=== PATIENT | female | born 1990 | race Caucasian/White ===

== ENCOUNTER 2022-11-23 10:56 | Outpatient (CLI) | payer MEDICAID, SELFPAY ==
--- NOTE | 2022-11-23 11:00 | CRLHL7_ITS ---
For Patients: As a result of the Cures Act, medical imaging exams and procedure reports are released immediately into your electronic medical record. You may view this report before your referring provider. If you have questions, please contact your health care provider. INDICATION: First trimester scan, establish dates. COMPARISON: None. TECHNIQUE: Real-time mota-scale imaging of the pelvis was performed. FINDINGS: Sonographic imaging demonstrates a single living intrauterine gestation. The embryo demonstrates a regular cardiac rate measuring 120 beats per minute. The embryo`s crown-rump length measurement of 0.9 cm corresponds to a gestational age of 6 weeks 6 days with a sonographic due date of 07/13/2023. There is a normal-appearing yolk sac. There are no gross abnormalities noted within the embryo at this early state of development. The gestational sac has a normal appearance. There is a tiny perigestational hemorrhage measuring 6 x 4 x 3 millimeters. The amount of fluid within the sac appears appropriate for gestational age. The cervix is closed. The myometrium appears normal. The ovaries are of normal size. There are no suspicious fluid collections noted in the cul-de-sac. IMPRESSION: Single living intrauterine with sonographic gestational age 6 weeks 6 days and sonographic due date 07/13/2023. Dictated by Dio Brown MD @ 11/23/2022 12:12:53 PM (Electronically Signed)
== END 2022-11-23 10:57 | disposition home or self-care (01) ==
PROVIDERS: Visit Provider Advanced Practice Midwife
DX: Z34.91 Encounter for supervision of normal pregnancy, unspecified, first trimester (principal); Z3A.01 Less than 8 weeks gestation of pregnancy
CPT/HCPCS: 76817; T1013

== ENCOUNTER 2022-11-23 12:18 | Outpatient (CLI) | payer MEDICAID, SELFPAY ==
[2022-11-23 17:29] LABS: Chlamydia DNA Amplified* NOT DETECTED (No Detected); GC DNA Amplified* NOT DETECTED (No Detected)
== END 2022-11-23 12:19 | disposition home or self-care (01) ==
PROVIDERS: Visit Provider Advanced Practice Midwife
DX: Z34.91 Encounter for supervision of normal pregnancy, unspecified, first trimester (principal); Z3A.09 9 weeks gestation of pregnancy
CPT/HCPCS: 86592; 86703; 86704; 86706; 86762; 86787; 86803; 86850; 86900; 86901; 87086; 87340; 87491; 87591

== ENCOUNTER 2022-12-13 10:02 | Emergency (ER) | payer MEDICAID, SELFPAY ==
[2022-12-13 10:06] VITALS: BP 103/63; PULSE 85; RESP 18; TEMP 36.4; O2SAT 98; BMI 39.4
[2022-12-13 10:25] LABS: Appearance Urine Slightly Cloudy (Clear); Bilirubin Urine 1+ (Negative); Blood Urine Trace-intact (Negative); Color Urine Yellow (Yellow); Glucose Urine Negative (Negative); Ketones Urine 4+ (Negative); Leukocyte Esterase Urine Negative (Negative); Nitrite Urine Negative (Negative); Protein Urine 2+ (Negative); Specific Gravity Urine >= 1.030 (1.000-1.030); Urobilinogen Urine 0.2 (0.2-1.0)
[2022-12-13 10:49] LABS: Bacteria Urine Moderate; RBC Urine 0-2 (0-2); Squamous Epithelial Cell Urine Moderate (None-Few)
[2022-12-13 10:50] LABS: Mucus Urine Many
--- NOTE | 2022-12-13 10:52 | ED_ITS ---
HPI - General Adult General Chief complaint: Abdominal Pain Stated complaint: lower stomach pain, 9 weeks Time Seen by Provider: 12/13/22 10:03 History of Present Illness HPI narrative: approx 9 weeks preg. c/o lower abd pain since last night. no bleeding or discharge, denies urinary symptoms 32-year-old woman presenting to the emergency department with complaint of lower abdominal/pelvic area cramping beginning last night. She has not had any vaginal bleeding or any other discharge. She denies dysuria. Denies back pain. Notes herself to be 9 weeks . Did have confirmatory ultrasound around 6 weeks by my review of records. Also I would think then she is probably closer to 12 weeks by that dating. She notes though that the dates were not which she expected with LMP; that seemed smaller than she would estimate. She has not any fever. She has struggled with nausea and vomiting during this and has taken some Zofran and did take something for constipation last week; sounds like might have been Colace and she says she has good in that regard now. Says she is just worried and wants to know that everything is okay when I discuss workup and potential treatment for pain or nausea. She would like an ultrasound. she denies complications with pregnancies or deliveries. Related Data Home Medications Medication Instructions Recorded Confirmed vits no.126-ferrous fum tab PO QDAY 12/07/22 12/07/22 28 mg iron-folic acid 800 mcg tablet (Classic ) Previous Rx's Medication Instructions Recorded ondansetron HCl 4 mg tablet 4 mg PO Q8-12H PRN nausea and 12/05/22 vomiting #20 tabs Allergies Allergy/AdvReac Type Severity Reaction Status Date / Time No Known Drug Allergies Allergy Verified 12/07/22 12:52 Review of Systems Status of ROS: Reports: 6 or more systems reviewed and unremarkable except as noted in History and below [facility] Medical History Hx of abnormal cervical Pap smear ?Z87.42 - Personal history of other diseases of the female genital tract (ICD-10) History of depression ?Z86.59 - Personal history of other mental and behavioral disorders (ICD-10) Syncope and collapse ?R55 - Syncope and collapse (ICD-10) History of vaginal delivery History of chorioamnionitis (2012) ?Z87.59 - Personal history of other complications of , childbirth and the puerperium (ICD-10) Surgical History No significant past surgical history Social History Narrative: SOCIAL Education: 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 - partner Lives with: partner and 2 children Pets: none Abuse: Denies past/present Special Diet: Denies Ok with a blood transfusion: yes Culture or latter-day beliefs: denies RISK FACTORS Exercise Times/wk: walks a lot at work Depression/Anxiety: denies DAVID: 4 PHQ 9: 8 Seat Belt Use: Routinely Smoking: Denies past/present Alcohol/day: Denies while Caffeine: not Drug Use: Denies past/present Chicken Pox: immunization MRSA: Denies What is your current living situation?: I presently have a place to live Problems where you live: no known problems In the past 12 months, utilities in danger of being shut off: no In past 12 months, lack of transportation kept you from medical appts, meetings, work, or getting things needed for daily living: no In the past 12 mos, have been you worried that your food would run out before you had money to buy more?: never true In the past 12 mos, the food you bought just didn't last and you didn't have money to buy more?: never true Smoking Status: Never smoker Do you use any of these nicotine containing products: None How often do you have a drink containing alcohol: never How often do you have six or more drinks on one occasion: Never AUDIT-C Alcohol total score: 0 Non-prescribed substance use: denies use How often does anyone, including family, friends and others, physically hurt you : never How often does anyone, including family, friends and others, insult or talk down to you: never How often does anyone, including family, friends and others, threaten you with harm: never How often does anyone, including family, friends and others, scream or curse at you: never Little interest or pleasure in doing things: more than half the days Feeling down, depressed, or hopeless: not at all service: No Exam Narrative: Exam Narrative: Very pleasant. Seems uncomfortable. Regularly rubbing her low abdomen pelvis, pressing. Is breathing easily. Lungs are clear. Heart in regular rate and rhythm. Abdomen is soft overweight and tender across the suprapubic adnexal bilaterally. Extremities are well perfused and without edema. No flank tenderness. Const: Vital Signs, click to edit/add: Vital Signs - 24 hr 12/13/22 10:06 Temperature 97.6 F Pulse Rate [Right Pulse Oximeter] 85 Respiratory Rate 18 Blood Pressure [Ri ght Upper Arm] 103/63 Pulse Oximetry 98 Oxygen Delivery Me thod Room Air Documenting provider has reviewed patient's vital signs: yes Course Vital Signs Vital signs: Initial Vital Signs Temperature 97.6 F 12/13/22 10:06 Temperature Source Temporal Artery Scan 12/13/22 10:06 Pulse Rate 85 12/13/22 10:06 Respiratory Rate 18 12/13/22 10:06 Blood Pressure 103/63 12/13/22 10:06 Blood Pressure Mean 76 12/13/22 10:06 Blood Pressure Position Sitting 12/13/22 10:06 Pulse Oximetry 98 12/13/22 10:06 Oxygen Delivery Method Room Air 12/13/22 10:06 Vital Signs Temperature 97.6 F 12/13/22 10:06 Pulse Rate 85 12/13/22 10:06 Respiratory Rate 18 12/13/22 10:06 Blood Pressure 103/63 12/13/22 10:06 Pulse Oximetry 98 12/13/22 10:06 Oxygen Delivery Method Room Air 12/13/22 10:06 Temperature 97.6 F 12/13/22 10:06 Pulse Rate 85 12/13/22 10:06 Respiratory Rate 18 12/13/22 10:06 Blood Pressure 103/63 12/13/22 10:06 Pulse Oximetry 98 12/13/22 10:06 Oxygen Delivery Method Room Air 12/13/22 10:06 Medical Decision Making MDM Narrative Medical decision making narrative: Seems to be a discrepancy between what date she thinks she is and likely dates by early ultrasound which would suggest her to be closer to 12 weeks. She has not had any bleeding cramping is certainly concerning. Urinalysis is already been resulted entering the room; concentrated in with ketones though otherwise unremarkable. Other concerns though unlikely include appendicitis, unlikely biliary disease being the source today, ovarian cyst would also be unlikely. Pending miscarriage? I did not offer IV hydration antiemetic pain management and she again would prefer just to know that things are okay otherwise. She feels she can manage fluids just has trouble eating food. Later does request acetaminophen after discussion of options. Urinalysis with 4+ ketones. Otherwise no indication of infection. Did discuss ultrasound findings with chief radiologic technologist. Noted normal. Adnexal viewed. IMPRESSION: Normal first trimester OB ultrasound exam. Gestational age calculated at 9 weeks 5 days with a sonographic due date of 07/13/2023. I did offer further evaluation doing lab work, IV fluids, potential imaging is and not certain what is contributing to this cramping. Understandably Jenifer prefers to just go home to close follow-up. See patient discharge plan Lab Data Lab results reviewed: Yes I reviewed the patient's lab results Labs: Lab Results 12/13/22 Range/Units 10:11 Urine Color Yellow (Yellow) Urine Appearance Slightly Cloudy A (Clear) Urine pH 6.0 (5.0-8.5) Ur Specific [place] >= 1.030 (1.000-1.030) Urine Protein 2+ A (Negative) Urine Glucose (UA) Negative (Negative) Urine Ketones 4+ A (Negative) Urine Blood Trace-intact A (Negative) Urine Nitrite Negative (Negative) Urine Bilirubin 1+ A (Negative) Urine Urobilinogen 0.2 (0.2-1.0) Ur Leukocyte Esterase Negative (Negative) Urine RBC 0-2 (0-2) Urine WBC 2-5 (0-5) Ur Squamous Epith Cells Moderate A (None-Few) Urine Bacteria Moderate A (None) Urine Mucus Many A (None) Discharge Plan Discharge Clinical Impression: Abdominal cramping affecting Patient Disposition: Home w/ Parent or Adult Condition: Stable Additional Instructions: Rest. Hydrate. Can take acetaminophen up to 1000 mg per dose. Return for persistent increasing pain, intractable vomiting, associated fever, bleeding. Things look okay at least with your on ultrasound today. Gestational age calculated at 9 weeks 5 days with a sonographic due date of 07/13/2023. Reposo. Hidrato. Puede bandar paracetamol hasta 1000 mg por dosis. Regresa por dolor persistente y creciente, v?mitos intratables, fiebre asociada, sangrado. Las cosas se sudha julito, al menos con segal embarazo en la ecograf?a hoy. Edad gestacional calculada a las 9 semanas y 5 d?as con fecha de parto ecogr?fico del 13/07/2023. Prescriptions: No Action Classic 28 mg iron- 800 mcg tablet PO QDAY Patient Comments: Gummy vitamin ondansetron HCl 4 mg tablet 4 mg PO Q8-12H PRN (Reason: nausea and vomiting) Qty: 20 0RF Follow Up/Referrals: Provider,Not a Local [Primary Care Provider] - Stand Alone Forms: [facility] Info Instructions
--- NOTE | 2022-12-13 11:23 | CRLHL7_ITS ---
For Patients: As a result of the Century Cures Act, medical imaging exams and procedure reports are released immediately into your electronic medical record. You may view this report before your referring provider. If you have questions, please contact your health care provider. INDICATION: lower abd pain in first trimester COMPARISON: 11/23/2022 TECHNIQUE: Real-time mota-scale imaging of the pelvis was performed. FINDINGS: Sonographic imaging demonstrates a single living intrauterine gestation. The embryo demonstrates a regular cardiac rate measuring 161 beats per minute. The embryo`s crown-rump length measurement of 2.9 cm corresponds to a gestational age of 9 weeks 5 days with a sonographic due date of 07/13/2023. There is a normal-appearing yolk sac. There are no gross abnormalities noted within the embryo at this early state of development. The gestational sac has a normal appearance. There is no evidence of a perigestational hemorrhage. The amount of fluid within the sac appears appropriate for gestational age. The cervix is closed. The myometrium appears normal. The ovaries are of normal size. There are no suspicious fluid collections noted in the cul-de-sac. IMPRESSION: Normal first trimester OB ultrasound exam. Gestational age calculated at 9 weeks 5 days with a sonographic due date of 07/13/2023. Dictated by Dio Brown MD @ 12/13/2022 12:11:40 PM (Electronically Signed)
[2022-12-13] MEDS: ACETAMINOPHEN 500 MG TABLET 1000 MG PO (12:18)
== END 2022-12-13 12:24 | disposition home or self-care (01) ==
PROVIDERS: Emergency Provider Family Medicine
DX: R10.30 Lower abdominal pain, unspecified (principal); Z3A.09 9 weeks gestation of pregnancy
CPT/HCPCS: 76817; 81001; 87086; 99283; 99284; A9270

== ENCOUNTER 2022-12-26 17:00 | Emergency (ER) | payer MEDICAID, SELFPAY ==
[2022-12-26 17:22] VITALS: BP 114/75; PULSE 85; RESP 14; TEMP 36.4; O2SAT 98; BMI 37.2
--- NOTE | 2022-12-26 18:32 | ED_ITS ---
HPI - Nausea/Vomiting/Diarrhea General Chief complaint: Nausea/Vomiting Stated complaint: , vomiting Time Seen by Provider: 12/26/22 18:06 History of Present Illness HPI Narrative: This 32-year-old female is about 12 weeks and comes in here upon recommendation of her clinician stating that she should get IV fluids. She has hyperemesis gravidarum and has been taking Zofran without any benefit. She was prescribed Reglan today but has not filled this prescription. She states that she has lost about 8 lb since vomiting more frequently. Related Data Home Medications Medication Instructions Recorded Confirmed vits no.126-ferrous fum tab PO QDAY 12/07/22 12/26/22 28 mg iron-folic acid 800 mcg tablet (Classic ) Previous Rx's Medication Instructions Recorded docusate sodium 100 mg capsule 100 mg PO QDAY constipation #120 12/26/22 (Dulcolax Stool Softener caps (docusate)) famotidine 20 mg tablet (Pepcid) 20 mg PO BID PRN nausea #120 tabs 12/26/22 meclizine 25 mg tablet (Dramamine 25 mg PO Q6-8H PRN nausea and 12/26/22 (meclizine)) vomiting #120 tabs metoclopramide HCl 5 mg tablet 10 mg (2 x 5 mg) PO Q6H PRN nausea 12/26/22 (Reglan) and vomiting #120 tabs Allergies Allergy/AdvReac Type Severity Reaction Status Date / Time No Known Drug Allergies Allergy Verified 12/26/22 17:24 Review of Systems Status of ROS: Reports: 10 or more systems reviewed and unremarkable except as noted in History and below Narrative: Constitutional: No fevers. Weight loss due to vomiting. Eyes: No discharge. No vision changes. HENT: No congestion, no sore throat, no ear pain. Cardiovascular: No chest pain, no palpitations. Respiratory: No shortness of breath, no wheezes, no cough. Gastrointestinal: No abdominal pain, no diarrhea. Frequent vomiting. Genitourinary: No dysuria, no hematuria. Musculoskeletal: Normal range of motion. Skin: No rashes, no pruritis. Neurological: No dizziness, weakness, sensory change, speech change. Endo/Heme/Allergies: No bruising or bleeding. No polydipsia. Pysch: no suicidality, no anxiety, no insomnia. All other systems reviewed and are negative. 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 Lives with: partner and 2 children Pets: none Abuse: Denies past/present Special Diet: Denies Ok with a blood transfusion: yes Culture or religion beliefs: denies RISK FACTORS Exercise Times/wk: walks a lot at work Depression/Anxiety: denies DAVID: 4 PHQ 9: 8 Seat Belt Use: Routinely Smoking: Denies past/present Alcohol/day: Denies while Caffeine: not Drug Use: Denies past/present Chicken Pox: immunization MRSA: Denies What is your current living situation?: I presently have a place to live Problems where you live: no known problems In the past 12 months, utilities in danger of being shut off: no In past 12 months, lack of transportation kept you from medical appts, meetings, work, or getting things needed for daily living: no In the past 12 mos, have been you worried that your food would run out before you had money to buy more?: never true In the past 12 mos, the food you bought just didn't last and you didn't have money to buy more?: never true Smoking Status: Never smoker Do you use any of these nicotine containing products: None How often do you have a drink containing alcohol: never How often do you have six or more drinks on one occasion: Never AUDIT-C Alcohol total score: 0 Non-prescribed substance use: denies use How often does anyone, including family, friends and others, physically hurt you : never How often does anyone, including family, friends and others, insult or talk down to you: never How often does anyone, including family, friends and others, threaten you with harm: never How often does anyone, including family, friends and others, scream or curse at you: never Little interest or pleasure in doing things: more than half the days Feeling down, depressed, or hopeless: not at all service: No Exam Narrative: Exam Narrative: Constitutional: Well-developed, well-nourished, no acute distress. HEENT: Normocephalic, atraumatic. Moist mucous membranes. Neck: Normal range of motion. Nontender. Supple. Heart: Regular. No murmurs. Normal rate. Intact distal pulses. Lungs: Clear to auscultation. No chest discomfort. No wheezes, rhonchi, or rales. Abdomen: Normal bowel sounds. Nontender. No rebound tenderness. Genitalia: Deferred. Back: No midline tenderness. Normal range of motion. Extremities: Normal range of motion. No injury. Skin: Intact. No rash. Warm. No erythema or pallor. Neurologic: No altered sensation. No weakness. Alert and oriented. Psychiatric: No suicidality. No anxiety or depression. No insomnia. Nursing notes and vitals signs are reviewed. Const: Vital Signs, click to edit/add: Vital Signs - 24 hr 12/26/22 17:22 Temperature 97.6 F Pulse Rate [Pulse Oximeter] 85 Respiratory Rate 14 Blood Pressure [Ri ght Upper Arm] 114/75 Pulse Oximetry 98 Oxygen Delivery Me thod Room Air Course Vital Signs Vital signs: Initial Vital Signs Temperature 97.6 F 12/26/22 17:22 Temperature Source Temporal Artery Scan 12/26/22 17:22 Pulse Rate 85 12/26/22 17:22 Respiratory Rate 14 12/26/22 17:22 Blood Pressure 114/75 12/26/22 17:22 Blood Pressure Mean 88 12/26/22 17:22 Blood Pressure Position Sitting 12/26/22 17:22 Pulse Oximetry 98 12/26/22 17:22 Oxygen Delivery Method Room Air 12/26/22 17:22 Vital Signs Temperature 97.6 F 12/26/22 17:22 Pulse Rate 85 12/26/22 17:22 Respiratory Rate 14 12/26/22 17:22 Blood Pressure 114/75 12/26/22 17:22 Pulse Oximetry 98 12/26/22 17:22 Oxygen Delivery Method Room Air 12/26/22 17:22 Temperature 97.6 F 12/26/22 17:22 Pulse Rate 85 12/26/22 17:22 Respiratory Rate 14 12/26/22 17:22 Blood Pressure 114/75 12/26/22 17:22 Pulse Oximetry 98 12/26/22 17:22 Oxygen Delivery Method Room Air 12/26/22 17:22 Medications Administered Medications: Generic Name Dose Route Start Last Admin Trade Name Freq PRN Reason Stop Dose Admin Sodium Chloride 1,000 mls @ 1,000 mls/hr 12/26/22 18:30 12/26/22 20:16 0.9 % Sodium Chloride 1000 Ml IV 12/26/22 19:29 Infused .Q1H MATTHEW Infusion Metoclopramide HCl 10 mg 12/26/22 18:30 12/26/22 19:02 Metoclopramide Hcl 5 Mg/Ml Inj IV 12/26/22 18:31 10 mg ONCE ONE Administration MDM - Nausea/Vomiting/Diarrhea MDM Narrative Medical decision making narrative: This patient comes in with weight loss due to hyperemesis gravidarum. She was sent here for IV fluids. She did receive a L of normal saline intravenously. Prior to this administration she did have moist mucous membranes and does have normal vital signs. She also received Reglan 10 mg in the intravenous route and states that her nausea is absent currently. She does have prescription for Reglan and Zofran. She is okay to return home. I encouraged her to take small sips and small bites of food as tolerated. She can follow up with her ongoing primary physicians as needed. Discharge Plan Discharge Clinical Impression: Hyperemesis gravidarum Patient Disposition: Home, Self-Care Condition: Improved Additional Instructions: Take medication as needed and indicated. Take small sips of fluids and small bites of food as tolerated. Return if worsening. Prescriptions: No Action meclizine [Dramamine (meclizine)] 25 mg tablet 25 mg PO Q6-8H PRN (Reason: nausea and vomiting) Qty: 120 1RF metoclopramide HCl [Reglan] 5 mg tablet 10 mg PO Q6H PRN (Reason: nausea and vomiting) Qty: 120 1RF docusate sodium [Dulcolax Stool Softener (dss)] 100 mg capsule 100 mg PO QDAY Qty: 120 0RF Rx Instructions: Take 1 tablet daily. You can take 2 tablets daily if needed for constipation. famotidine [Pepcid] 20 mg tablet 20 mg PO BID PRN (Reason: nausea) Qty: 120 0RF Rx Instructions: Take one tablet before bed. You can take an additional tablet during the day PRN. Classic 28 mg iron- 800 mcg tablet PO QDAY Patient Comments: Gummy vitamin Follow Up/Referrals: Provider,Not a Local [Primary Care Provider] - Stand Alone Forms: [employer] Info Instructions
[2022-12-26] MEDS: METOCLOPRAMIDE HCL 5 MG/ML INJ 10 MG IV (19:02)
[2022-12-26] MEDS: 0.9 % SODIUM CHLORIDE 1000 ml 1,000 ML IV (19:02)
== END 2022-12-26 20:25 | disposition home or self-care (01) ==
PROVIDERS: Emergency Provider Emergency Medicine Emergency Medical Services
DX: O21.0 Mild hyperemesis gravidarum (principal)
CPT/HCPCS: 96374; 99283; 99284; J2765; J7030

== ENCOUNTER 2023-01-13 11:30 | Outpatient (RCR) | payer MEDICAID, SELFPAY ==
[2022-12-28 11:21] VITALS: BP 98/58; PULSE 79; RESP 16; TEMP 36.4; O2SAT 99
[2022-12-28] MEDS: LACTATED RINGERS 1000 ML 1,000 ML IV (11:40)
[2022-12-28 12:43] LABS: Appearance Urine Cloudy (Clear); Bilirubin Urine Negative (Negative); Blood Urine Negative (Negative); Color Urine Yellow (Yellow); Glucose Urine Negative (Negative); Ketones Urine 2+ (Negative); Leukocyte Esterase Urine Negative (Negative); Nitrite Urine Negative (Negative); Protein Urine 1+ (Negative); Specific Gravity Urine 1.025 (1.000-1.030); pH Urine 7.5 (5.0-8.5)
[2022-12-28 13:00] LABS: Albumin* 3.6 g/dL (3.3-5.0); Chloride* 105 mmol/L (96-114); Sodium* 135 mmol/L (135-149)
[2022-12-28 13:01] LABS: Potassium* 3.3 mmol/L (3.6-5.1)
[2022-12-28 13:03] LABS: Alanine Aminotransferase* 23 U/L (4-35); Alkaline Phosphatase* 53 U/L (40-150); Anion Gap 7 mEq/L (7-15); Aspartate Amino Transferase* 17 U/L (12-35); Bilirubin Total* 0.3 mg/dL (0.1-1.5); Blood Urea Nitrogen* 5 mg/dL (5-24); Carbon Dioxide* 23 mmol/L (20-32); Creatinine* 0.4 mg/dL (0.5-1.5); Estimated Glomerular Filt Rate 136 ml/min; Glucose* 92 mg/dL (60-115); Total Protein* 6.3 g/dL (6.0-8.3)
[2022-12-28 13:04] LABS: Calcium* 8.8 mg/dL (8.4-10.6)
[2022-12-28 13:07] LABS: RBC Urine 0-2 (0-2); Squamous Epithelial Cell Urine Moderate (None-Few)
[2022-12-28 13:08] LABS: Bacteria Urine Few; Mucus Urine Moderate
--- NOTE | 2022-12-28 13:13 | ONC.NURNOTE ---
Pt reported nausea and had an episode of emesis post IV start. Women's health was notified and new orders were placed for pt. Pt refused IV Zofran since symptoms have resolved. Pt is resting comfortably with IV LR with B1 infusing.
[2022-12-30 11:21] LABS: Beta-Hydroxybutyric Acid 2.9 mg/dL (0.0-3.0)
[2023-01-03 09:05] VITALS: BP 92/57; PULSE 80; RESP 16; TEMP 36.3; O2SAT 98
[2023-01-03] MEDS: LACTATED RINGERS 1000 ML 1,000 ML IV (10:11)
[2023-01-03 11:58] LABS: Appearance Urine Clear (Clear); Bilirubin Urine Negative (Negative); Blood Urine Negative (Negative); Color Urine Yellow (Yellow); Glucose Urine Negative (Negative); Ketones Urine 2+ (Negative); Leukocyte Esterase Urine Negative (Negative); Nitrite Urine Negative (Negative); Protein Urine Negative (Negative); Specific Gravity Urine 1.015 (1.000-1.030); Urobilinogen Urine 0.2 (0.2-1.0)
[2023-01-03 12:03] LABS: Albumin* 3.5 g/dL (3.3-5.0); Chloride* 106 mmol/L (96-114); Potassium* 3.4 mmol/L (3.6-5.1); Sodium* 135 mmol/L (135-149)
[2023-01-03 12:05] LABS: Anion Gap 7 mEq/L (7-15); Bilirubin Total* 0.2 mg/dL (0.1-1.5); Carbon Dioxide* 22 mmol/L (20-32); Creatinine* 0.4 mg/dL (0.5-1.5); Estimated Glomerular Filt Rate 136 ml/min
[2023-01-03 12:06] LABS: Alanine Aminotransferase* 13 U/L (4-35); Alkaline Phosphatase* 49 U/L (40-150); Aspartate Amino Transferase* 20 U/L (12-35); Blood Urea Nitrogen* 5 mg/dL (5-24); Calcium* 8.6 mg/dL (8.4-10.6); Glucose* 90 mg/dL (60-115); Total Protein* 6.1 g/dL (6.0-8.3)
--- NOTE | 2023-01-03 12:39 | PC.NURSE ---
Pt present at [facility] for hyration (1L LR) per infusion orders. RN noted hand written orders behind the infuison order form stating give additional bag of LR w/ 200 mg B1 added to it. RN called women's health to clarify if that was a one time order or to be given with each bag of LR. It was also noted that a B1 oral script was entered and RN confirmed w/ pt that she is taking this TID. RN was ordered NOT to give a 2nd liter of fluid with B1 vitamin but to ONLY give the 1 bag of LR. RN also reported pt was asking for a call with lab and urine results. Women's health provider will follow and call pt.
[2023-01-05 16:35] LABS: Beta-Hydroxybutyric Acid 2.5 mg/dL (0.0-3.0)
[2023-01-06 08:34] VITALS: BP 103/55; PULSE 78; RESP 16; TEMP 36; O2SAT 99
[2023-01-06] MEDS: LACTATED RINGERS 1000 ML 1,000 ML IV (09:00)
[2023-01-06] MEDS: SODIUM CHLORIDE 0.9 % (FLUSH) 10 ML SYRINGE IVF (10:44)
--- NOTE | 2023-01-06 14:28 | ONC.NURNOTE ---
states nausea and vomiting is getting lessen. and po intake better.
[2023-01-10 11:38] VITALS: BP 65/58; PULSE 82; RESP 16; TEMP 36.6; O2SAT 99
[2023-01-10] MEDS: LACTATED RINGERS 1000 ML 1,000 ML IV (12:21)
[2023-01-10 12:33] LABS: Chloride* 107 mmol/L (96-114); Potassium* 3.6 mmol/L (3.6-5.1); Sodium* 137 mmol/L (135-149)
[2023-01-10 12:35] LABS: Creatinine* 0.4 mg/dL (0.5-1.5); Estimated Glomerular Filt Rate 136 ml/min
[2023-01-10 12:36] LABS: Alanine Aminotransferase* 15 U/L (4-35); Alkaline Phosphatase* 48 U/L (40-150); Anion Gap 11 mEq/L (7-15); Aspartate Amino Transferase* 17 U/L (12-35); Bilirubin Total* 0.2 mg/dL (0.1-1.5); Blood Urea Nitrogen* 5 mg/dL (5-24); Carbon Dioxide* 19 mmol/L (20-32); Glucose* 108 mg/dL (60-115); Total Protein* 6.9 g/dL (6.0-8.3)
[2023-01-10 12:37] LABS: Calcium* 8.7 mg/dL (8.4-10.6)
[2023-01-10 15:10] LABS: Appearance Urine Clear (Clear); Bilirubin Urine Negative (Negative); Blood Urine Negative (Negative); Color Urine Yellow (Yellow); Glucose Urine Negative (Negative); Ketones Urine Negative (Negative); Leukocyte Esterase Urine Negative (Negative); Nitrite Urine Negative (Negative); Protein Urine Negative (Negative); Specific Gravity Urine 1.015 (1.000-1.030); Urobilinogen Urine 0.2 (0.2-1.0); pH Urine 7.5 (5.0-8.5)
[2023-01-12 12:15] LABS: Beta-Hydroxybutyric Acid 1.4 mg/dL (0.0-3.0)
[2023-01-13 11:21] VITALS: BP 95/59; PULSE 92; RESP 16; TEMP 35.8; O2SAT 98
[2023-01-13] MEDS: LACTATED RINGERS 1000 ML 1,000 ML IV (11:35)
== END 2023-06-26 23:59 | disposition home or self-care (01) ==
LOC: CCIC 11:30
PROVIDERS: Visit Provider Advanced Practice Midwife
DX: O21.0 Mild hyperemesis gravidarum (principal)
CPT/HCPCS: 36415; 80051; 80053; 81003; 81015; 82010; 87086; 96360; 96361; T1013; J3411; J7120

== ENCOUNTER 2023-01-26 11:20 | Outpatient (CLI) | payer MEDICAID, SELFPAY | END 2023-01-26 11:21 | disposition home or self-care (01) | LOC: NFLDREF 01-30 10:33 | PROVIDERS: Visit Provider Advanced Practice Midwife | DX: Z34.92 Encounter for supervision of normal pregnancy, unspecified, second trimester (principal); O99.212 Obesity complicating pregnancy, second trimester; Z3A.16 16 weeks gestation of pregnancy | CPT/HCPCS: 81511 ==

== ENCOUNTER 2023-02-23 11:08 | Outpatient (CLI) | payer MEDICAID, SELFPAY ==
--- NOTE | 2023-02-23 12:15 | P.ANPROEV_ITS ---
[facility] Medical History Hx of abnormal cervical Pap smear ?Z87.42 - Personal history of other diseases of the female genital tract (ICD-10) History of depression ?Z86.59 - Personal history of other mental and behavioral disorders (ICD-10) Syncope and collapse ?R55 - Syncope and collapse (ICD-10) History of vaginal delivery History of chorioamnionitis (2012) ?Z87.59 - Personal history of other complications of , childbirth and the puerperium (ICD-10) Surgical History No significant past surgical history Social History Narrative: SOCIAL Education: 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 - partner Lives with: partner and 2 children Pets: none Abuse: Denies past/present Special Diet: Denies Ok with a blood transfusion: yes Culture or latter day beliefs: denies RISK FACTORS Exercise Times/wk: walks a lot at work Depression/Anxiety: denies DAVID: 4 PHQ 9: 8 Seat Belt Use: Routinely Smoking: Denies past/present Alcohol/day: Denies while Caffeine: not Drug Use: Denies past/present Chicken Pox: immunization MRSA: Denies What is your current living situation?: I presently have a place to live Problems where you live: no known problems In the past 12 months, utilities in danger of being shut off: no In past 12 months, lack of transportation kept you from medical appts, meetings, work, or getting things needed for daily living: no In the past 12 mos, have been you worried that your food would run out before you had money to buy more?: never true In the past 12 mos, the food you bought just didn't last and you didn't have money to buy more?: never true Smoking Status: Never smoker Do you use any of these nicotine containing products: None How often do you have a drink containing alcohol: never How often do you have six or more drinks on one occasion: Never AUDIT-C Alcohol total score: 0 Non-prescribed substance use: denies use How often does anyone, including family, friends and others, physically hurt you : never How often does anyone, including family, friends and others, insult or talk down to you: never How often does anyone, including family, friends and others, threaten you with harm: never How often does anyone, including family, friends and others, scream or curse at you: never Little interest or pleasure in doing things: more than half the days Feeling down, depressed, or hopeless: not at all service: No Meds Home Medications and Allergies Home Medications Medication Instructions Recorded Confirmed Type vits no.126-ferrous fum 2 tab PO QDAY 12/07/22 02/23/23 History 28 mg iron-folic acid 800 mcg tablet (Classic ) Allergies Allergy/AdvReac Type Severity Reaction Status Date / Time No Known Drug Allergies Allergy Verified 02/23/23 10:28 Anesthesia Risk Status Procedure Time Seen by Provider: 11:15 Date Seen: 02/23/23 Planned operative procedure(s): delivery History Anesthesia history: epidural Assessment and Plan Assessment and plan (1) Obesity, morbid, BMI 40.0-49.9: Status: Acute (2) : Status: Acute Plan Patient third . Epidurals for first two without incident. Planning again for third. No contraindication to delivery at [facility]. Discussed increased time to place epidural related to BMI and increased potential for one sided or failed epidural
== END 2023-02-23 11:09 | disposition home or self-care (01) ==
PROVIDERS: Visit Provider Anesthesiology
DX: Z34.90 Encounter for supervision of normal pregnancy, unspecified, unspecified trimester (principal); E66.01 Morbid (severe) obesity due to excess calories
CPT/HCPCS: T1013

== ENCOUNTER 2023-04-20 12:15 | Outpatient (CLI) | payer MEDICAID, SELFPAY ==
--- NOTE | 2023-04-20 12:15 | US_ITS ---
Patient: CIEAR SALECDO Facility:?[facility] Patient ID:?[id number] Site Patient ID:?[id number]. Site :?1991 Study:?US-OB Pelvis FOLLOW UP-04/20/2023 12:57:22 PM Ordering Physician:TOBY SWEET Final Report: INDICATION: Third trimester scan, evaluate growth. COMPARISON: 03/13/2023 TECHNIQUE: Real time mota scale imaging of the fetus was performed. FINDINGS: Sonographic imaging demonstrates a single living intrauterine gestation. Fetus demonstrates a regular cardiac rate of 145 beats per minute. Fetus has a jogre breech position. The placenta lies posteriorly without evidence of placenta previa. Placental edge 9.3 cm from the internal cervical os. Amniotic fluid volume appears normal and there is a single deepest vertical pocket: 5.1 cm. The estimated weight is 1189gm which lies at the 45th %. BPD 27th percentile. HC 41st percentile. AC 58th percentile. FL is 26th percentile. On the prior OB ultrasound exam dated 03/13/2023 the estimated weight was at the 56th%. The HC/AC ratio measures 1.09 range (1.02-1.21). IMPRESSION: Sonographic gestational age 28 weeks 1 day and sonographic due date of 07/12/2023. Normal interval growth. Good correlation with dates. Estimated weight 45th percentile. Abdominal circumference 58th percentile. Dictated by Dio Brown MD @ 04/21/2023 9:44:52 AM Signed by:?Dio Brown MD @04/21/2023 9:44:52 AM (Electronic Signature)
== END 2023-04-20 12:16 | disposition home or self-care (01) ==
PROVIDERS: Visit Provider Advanced Practice Midwife
DX: Z34.90 Encounter for supervision of normal pregnancy, unspecified, unspecified trimester (principal)
CPT/HCPCS: 76816; T1013

== ENCOUNTER 2023-04-20 12:16 | Outpatient (CLI) | payer MEDICAID, SELFPAY | END 2023-04-20 12:17 | disposition home or self-care (01) | LOC: NFLDREF 04-24 06:06 | PROVIDERS: Visit Provider Advanced Practice Midwife | DX: Z34.93 Encounter for supervision of normal pregnancy, unspecified, third trimester (principal) | CPT/HCPCS: 76816; 86592; T1013 ==

== ENCOUNTER 2023-04-28 08:11 | Outpatient (CLI) | payer MEDICAID, SELFPAY | END 2023-04-28 08:12 | disposition home or self-care (01) | LOC: NFLDREF 12:02 | PROVIDERS: PCP Advanced Practice Midwife; Visit Provider Advanced Practice Midwife | DX: Z34.83 Encounter for supervision of other normal pregnancy, third trimester (principal) | CPT/HCPCS: 82951; 82952 ==

== ENCOUNTER 2023-05-19 17:41 | Outpatient (CLI) | payer MEDICAID, SELFPAY ==
[2023-05-19 17:46] VITALS: BP 122/80; PULSE 119; RESP 20; TEMP 36.5; O2SAT 99; BMI 37.9
--- NOTE | 2023-05-19 18:04 | ED.NURSE ---
talked to OB,RN. transferred to OB via wheelchair
[2023-05-19 18:22] VITALS: PULSE 132; O2SAT 98
[2023-05-19 18:25] VITALS: RESP 17; TEMP 36.7
[2023-05-19 18:27] VITALS: PULSE 125; O2SAT 99
[2023-05-19 18:59] LABS: Clue Cells No Clue Cells Seen (None Seen); Trichomonas No Trichomonas Seen (None Seen); Yeast No Yeast Seen (None Seen)
[2023-05-19 19:05] LABS: Amnisure Rom* Negative
[2023-05-19] MEDS: LACTATED RINGERS 1000 ML 1,000 ML 900 ML IV ×4 (19:07→20:39)
[2023-05-19] MEDS: ONDANSETRON 2 MG/ML inj 4 MG IV (19:13)
[2023-05-19 19:31] LABS: PCR FLU A Negative PCR FLU A (Negative); PCR FLU B Negative PCR FLU B (Negative); PCR RSV Negative PCR RSV (Negative); SARS PCR* Negative SARS-CoV-2 (Negative)
--- NOTE | 2023-05-19 19:41 | PC.OBNST ---
The provider's electronic signature indicates the NST is reactive/appropriate for gestational age. *Note to provider: If an addendum is required, open the patient's chart and click on the note under the Nurse/Allied Health tab.
[2023-05-19] MEDS: METOCLOPRAMIDE HCL 5 MG/ML INJ 10 MG IVP (20:20)
[2023-05-19 20:22] VITALS: BP 107/55; PULSE 110; RESP 16; TEMP 36.6
[2023-05-19 20:48] LABS: Appearance Urine Clear (Clear); Bilirubin Urine 1+ (Negative); Blood Urine Negative (Negative); Color Urine Yellow (Yellow); Glucose Urine Negative (Negative); Ketones Urine 4+ (Negative); Leukocyte Esterase Urine Negative (Negative); Nitrite Urine Negative (Negative); Protein Urine 2+ (Negative); Specific Gravity Urine >= 1.030 (1.000-1.030); Urobilinogen Urine 0.2 (0.2-1.0)
[2023-05-19] MEDS: diphenhydrAMINE 50 MG/ML inj IVP (20:52)
[2023-05-19 21:24] LABS: Bacteria Urine Few; RBC Urine 0-2 (0-2); Squamous Epithelial Cell Urine Few (None-Few); WBC Urine 0-2 (0-5)
--- NOTE | 2023-05-22 21:22 | PC.OBNST ---
NST Note NST Note Start: 05/19/23 18:21 Freq: ONCE Status: Complete Protocol: Document 05/19/23 19:39 BR (Rec: 05/19/23 19:41 BR [id number]) NST Note 3 Para (# of births) 2 EDC 07/13/23 Gestational Age In Weeks & Days 32 Weeks & 1 Days Patient Presented with Complaint(s) of Nausea and vomiting Reactive Yes Appropriate for Gestational Age Yes MARRY Ochoa Date 05/19/23 Reactive Yes Appropriate for Gestational Age Yes MARRY Padilla Date 05/19/23 OB NST charge Yes Complete NST Note via Write Note Yes 05/19/23 19:41 NST Documentation by Gavi Padilla The provider's electronic signature indicates the NST is reactive/appropriate for gestational age. *Note to provider: If an addendum is required, open the patient's chart and click on the note under the Nurse/Allied Health tab. Initialized on 05/19/23 19:41 - END OF NOTE The provider's electronic signature indicates the NST is reactive/appropriate for gestational age. *Note to provider: If an addendum is required, open the patient's chart and click on the note under the Nurse/Allied Health tab.
--- NOTE | 2023-05-26 15:07 | PC.OBNST ---
NST Note NST Note Start: 05/19/23 18:21 Freq: ONCE Status: Complete Protocol: Document 05/19/23 19:39 BR (Rec: 05/19/23 19:41 BR [id number]) NST Note 3 Para (# of births) 2 EDC 07/13/23 Gestational Age In Weeks & Days 32 Weeks & 1 Days Patient Presented with Complaint(s) of Nausea and vomiting Reactive Yes Appropriate for Gestational Age Yes MARRY Ochoa Date 05/19/23 Reactive Yes Appropriate for Gestational Age Yes MARRY Padilla Date 05/19/23 OB NST charge Yes Complete NST Note via Write Note Yes 05/19/23 19:41 NST Documentation by Gavi Padilla The provider's electronic signature indicates the NST is reactive/appropriate for gestational age. *Note to provider: If an addendum is required, open the patient's chart and click on the note under the Nurse/Allied Health tab. Initialized on 05/19/23 19:41 - END OF NOTE The provider's electronic signature indicates the NST is reactive/appropriate for gestational age. *Note to provider: If an addendum is required, open the patient's chart and click on the note under the Nurse/Allied Health tab.
== END 2023-05-19 22:00 | disposition home or self-care (01) ==
LOC: ED 18:15 → OB OUT 18:17 → OB 18:20
PROVIDERS: Emergency Provider Family Medicine; Visit Provider Advanced Practice Midwife
DX: O26.893 Other specified pregnancy related conditions, third trimester (principal); R11.2 Nausea with vomiting, unspecified; Z3A.32 32 weeks gestation of pregnancy
CPT/HCPCS: 59025; 81001; 81003; 84112; 87086; 87210; 87631; G0463; J1200; J2405; J2765; J7120

== ENCOUNTER 2023-06-02 07:18 | Outpatient (CLI) | payer MEDICAID, SELFPAY ==
--- NOTE | 2023-06-02 07:15 | US_ITS ---
Patient: CIERA SALCEDO Facility:?[facility] Patient ID:?[id number] Site Patient ID:?[id number]. Site :?1990 Study:?US-OB Pelvis OB F/U-06/02/2023 7:58:17 AM Ordering Physician:?Christen Dennis Final Report: INDICATION: Third trimester scan, evaluate growth. Morbid obesity. COMPARISON: 04/20/2019 TECHNIQUE: Real time mota scale imaging of the fetus was performed. FINDINGS: Sonographic imaging demonstrates a single living intrauterine gestation. Fetus demonstrates a regular cardiac rate of 150 beats per minute. Fetus has a vertex position. The placenta lies fundal posterior. Amniotic fluid volume appears normal and there is a single deepest vertical pocket: 4.8 cm. The estimated weight is 2240gm which lies at the 29th %. On the prior OB ultrasound exam dated 04/20/2023 the estimated weight was at the 45th%. BPD 19th percentile. HC 22nd percentile. AC 35th percentile. FL 30th percentile. The HC/AC ratio measures 1.05 range (0.95-1.11). IMPRESSION: Sonographic gestational age 33 weeks 5 days and sonographic due date of 07/16/2023. Good correlation with dates. Normal interval growth. Estimated weight 29th percentile. Abdominal circumference 35th percentile. Dictated by Dio Brown MD @ 06/02/2023 12:33:20 PM Signed by:?Dio Brown MD @06/02/2023 12:33:20 PM (Electronic Signature)
== END 2023-06-02 07:19 | disposition home or self-care (01) ==
LOC: US 07:19
PROVIDERS: Visit Provider Advanced Practice Midwife
DX: O99.213 Obesity complicating pregnancy, third trimester (principal); Z3A.33 33 weeks gestation of pregnancy
CPT/HCPCS: 76816; T1013

== ENCOUNTER 2023-06-16 10:00 | Outpatient (CLI) | payer MEDICAID, SELFPAY | END 2023-06-16 10:01 | disposition home or self-care (01) | LOC: NFLDREF 06-19 05:18 | PROVIDERS: Visit Provider Advanced Practice Midwife | DX: Z34.83 Encounter for supervision of other normal pregnancy, third trimester (principal) | CPT/HCPCS: 87081; 87653; T1013 ==

== ENCOUNTER 2023-07-02 12:20 | Inpatient (IN) | payer MEDICAID, SELFPAY ==
[2023-07-02] VITALS (12 sets, daily range): BP systolic 106–127; BP diastolic 58–72; PULSE 64–86; RESP 16; TEMP 36.6–36.8; O2SAT 99; BMI 38.7
[2023-07-02 12:05] LABS: Clue Cells No Clue Cells Seen (None Seen); Trichomonas No Trichomonas Seen (None Seen); Yeast No Yeast Seen (None Seen)
--- NOTE | 2023-07-02 13:49 | P.LDBA_ITS ---
Subjective History of Present Illness Date Seen: 07/02/23 Narrative: Patient is being admitted to Labor and Delivery for induction of labor after being triaged for bleeding this morning. She is a 33 year old at 38.3 weeks gestation. Her full history and physical was dictated by Van Grewal CNM on 06/23/23. Please see this for details. She is accompanied by her and an paraprofessional interpreter is present for the entirety of our discission. This morning Jenifer got up to the bathroom. When she stood up she noticed that she had bright red vaginal bleeding. The toilet contained a lot of blood per report and she showed a picture of the toilet paper that she used that was covered in brith red blood. She states that it was thin and not mixed with mucus. She denies any bleeding since this incident. She is appreciating good movement and denies leaking fluid or other pertinent signs or symptoms. She denies feeling any contractions or abdominal tightening. She has had pelvic/vaginal pain that she describes as sharp over the past week and today it has been about every 15 minutes. We discussed concerns about a possible partial abruption with this bleeding at her gestation. I did recommend an induction and she is agreeable. We discussed risks and benefits of induction and of not inducing. We discussion options for induction. We briefly discussed Cytotec but i did not recommend it in this situation. I also discussed induction with Pitocin or AROM. Risks and benefits of each were discussed. Will start induction with Pitocin titration and will consider AROM as labor progresses. She is comfortable with this plan and was given the opportunity to ask questions. She did have an induction with Pitocin with her first child. She is unsure what her plan is for labor pain at this time. She is uncertain if she desires a water . She is a candidate as her BMI is now below 40 although it was above 40 at her prepregnancy weight. She has lost weight initially due to nausea and vomiting but maintained due to healthier food and lifestyle choices during . We did discuss laboring in the tub and that she is at higher risk of risking out of a water with her bleeding and need for continuous monitoring. She is open to what ever she feels that she needs for pain in labor. Specific Issues/Plans : Jay Needs paraprofessional interpreter: Pashto speaking H & P done 06/23/23 by Van Grewal 1. Hx fainting with both pregnancies. Has fainted once per pt report at [facility]. 2. Obesity. BMI 40.5 at NOB. (prepregnancy, 41.8) A1C: 5.2 Nutrition referral:ordered 01/26 Anesthesia referral: ordered 01/26 OB referral: recommended Level II US: done, has follow up scheduled for missing views. Low lying placenta. vtx, 3 vessel cord. SDP 5.1. EFW 88%. GTT at 20 wks: 132 Weekly BPP/NST starting at 34 wks (per MFM): Growth u/s & placenta location at 28 weeks (per MFM): 45%ile Growth u/s & placenta location at 34 weeks (per MFM): 29%ile; Consider growth US at 37-38 weeks if her weight is still significantly down or additional weight loss 3. Failed 1 hour gct, passed 3/4 values of 3 hour gct 4. Nausea and Vomiting. RESOLVED Able to drink but not eat. Zofran stopped due to severe constipation. Scripts for Reglan, meclizine, stool softener, and Pepcid per HER protocol. Will start IV fluids bi-weekly. Weekly labs ordered with infusions. (labs K+ 3.3) Consider adding vitamins to IV based on labs. Thiamin TID until 20 wks then 250mg QD after, HER protocol. (will need new Rx at 20 week visit - sent) 24 wks NV improved not taking meds. 5. Low lying placenta, RESOLVED Level II u/s: 1.03 cm from os Follow-up: 03/13/23 >2cm from internal os, unremarkable exam. 6. Significant weight loss during Down 18 lbs at 34 weeks COVID: two doses Flu: TDAP: 06/02/2023 32wk Mental Health: 34wk Hgb: Pap: ASCUS, HPV neg 11/23/2022; Recommend repeating or in 1 year Hx +HPV 10/29/20 [place] 11/05/20 ASCUS, HPV+ No repeat pap since. Pap collected at [facility] - Problem Based A/P Additional Plan (1) Vaginal bleeding during : Status: Acute (2) Obesity, morbid, BMI 40.0-49.9: Problem details: Weight loss during , current BMI 37.6 Status: Acute (3) Encounter for induction of labor: Status: Acute Plan ASSESSMENT:? at 38.3 weeks gestation? GBS positive? complicated by: obesity, vaginal bleeding at 38 weeks, induction of labor? Medical IOL? ?? PLAN:? 1. Antibiotic prophylaxis treatment per protocol? 2. Reviewed risks and benefits of IOL with pitocin vs cytotec vs AROM. Pitocin titration recommended and agreeable to. Titrate per order as able. 3. Candidate for analgesia of choice. Planning unmedicated but open to an epidural.? 4. Monitor for vaginal bleeding and report any increases or intolerance. 5. Anticipate vaginal delivery. Discussed increased risk of necessitating delivery. 6. IV placement for pitocin administration and antibiotic prophylaxis. 7. Continuous monitoring. Delivery/Labor/Induction Plan Plan: induction Induction method: per pitocin protocol OB Result Labs Blood Type: O (+) positive Rubella: immune RPR/VDLR: nonreactive GBS Status: positive OB Exam Physical Exam Vital signs: Temp Pulse Resp BP Pulse Ox 98.2 F 72 16 106/59 L 99 07/02/23 10:54 07/02/23 10:56 07/02/23 10:54 07/02/23 10:56 07/02/23 10:48 Narrative: Psychiatric:? Alert and oriented x3? HEENT:? Normocephalic, atraumatic? Neck:? Supple without adenopathy or thyromegaly? Lungs:? Clear to auscultation bilaterally? Heart:? Regular rate and rhythm, no murmur, rub or gallop? Abdomen:? Soft, nontender, and gravid? Extremities:? No edema or erythema? Detailed Labor and Delivery Exam Patient Gravid: Yes Dilation (cm): 1 (1.5cm per exam by Dr. 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
[2023-07-02 14:21] LABS: Basophils Absolute Auto 0.02 K/uL (0.00-0.30); Basophils Percent Auto 0.3 % (0.0-3.0); Eosinophils Absolute Auto 0.04 K/uL (0.00-0.50); Eosinophils Percent Auto 0.7 % (0.0-7.0); Hematocrit 36.5 % (33.0-51.0); Hemoglobin* 12.2 gm/dL (12.0-16.0); Immature Granulocytes Abs Auto 0.01 K/uL (0.00-0.30); Immature Granulocytes Pct Auto 0.2 %; Lymphocytes Absolute Auto 1.86 K/uL (0.90-2.90); Lymphocytes Percent Auto 30.5 % (20-44); Mean Corpuscular HGB Conc 33 gm/dL (32-36); Mean Corpuscular Hemoglobin 27 pg (26-34); Mean Corpuscular Volume 80 fL (80-100); Monocytes Percent Auto 4.6 % (0.0-11.0); Neutrophils Absolute Auto 3.89 K/uL (1.7-7.0); Neutrophils Percent Auto 63.7 % (42.0-72.0); Platelet Count* 304 K/uL (140-440); RDW Coefficient of Variation % 15.1 % (11.5-15.5); Red Blood Count 4.57 m/uL (4.00-5.20)
[2023-07-02 14:28] LABS: Slide Review Reflex No
[2023-07-02] MEDS: OXYTOCIN 30 unit/500 ML in NS 30 UNIT/500 ML BAG IVPB (14:31)
[2023-07-02] MEDS: LACTATED RINGERS 1000 ML 1,000 ML 125 ML IV ×2 (14:32→22:22)
[2023-07-02 16:12] LABS: INR 0.93 (0.91-1.10); Partial Thromboplastin Time* 29 Seconds (23-33)
[2023-07-02 16:13] LABS: Fibrinogen* 570 mg/dL (200-450)
[2023-07-02] MEDS: AMPICILLIN 2 GM in 0.9 % SODIUM CHLORIDE Mini-bag 100 ML IVPB (20:03)
--- NOTE | 2023-07-02 20:38 | PM.OBPNL ---
Subjective Date Seen: 07/02/23 Narrative: Pitocin titration was started on Jenifer. She is feeling cramping but not feeling contractions. She has not had any bleeding since before admission. FHR tracing is category 2. Encouraged her to sleep over night and the RN will offer medications for assistance if she would like. Will continue to monitor bleeding and FHR tracing. Continue with Pitocin titration. Did begin antibiotic prophylaxis now due to her cramping and a history of fast labors. 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 at 38.3 weeks gestation? GBS positive? complicated by: obesity, vaginal bleeding at 38 weeks, induction of labor? Medical IOL? ?? PLAN:? 1. Antibiotic prophylaxis treatment per protocol?initiated. 2. Pitocin titration per protocol. 3. Candidate for analgesia of choice. Planning unmedicated but open to an epidural.? 4. Monitor for vaginal bleeding and report any increases or intolerance. 5. Anticipate vaginal delivery. Discussed increased risk of necessitating delivery. 6. Continuous monitoring. 7. Encouraged sleep as able.
[2023-07-03] VITALS (138 sets, daily range): BP systolic 78–137; BP diastolic 45–74; PULSE 62–115; RESP 16–20; TEMP 36.3–36.7; O2SAT 91–100
[2023-07-03] MEDS: AMPICILLIN 1 GM in 0.9 % SODIUM CHLORIDE Mini-bag 100 ML IVPB ×3 (00:15→08:31)
[2023-07-03] MEDS: LACTATED RINGERS 1000 ML 1,000 ML IV (07:04)
[2023-07-03] MEDS: LIDOCAINE 2% (PF) 5 ML VIAL EPIDURAL (07:31)
[2023-07-03] MEDS: ROPIVACAINE 0.2% 100 ml 100 ML 12 MG EPIDURAL (07:31)
--- NOTE | 2023-07-03 07:45 | P.ANBPRC_ITS ---
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 - partner Lives with: partner and 2 children Pets: none Abuse: Denies past/present Special Diet: Denies Ok with a blood transfusion: yes Culture or jain beliefs: denies RISK FACTORS Exercise Times/wk: walks a lot at work Depression/Anxiety: denies DAVID: 4 PHQ 9: 8 Seat Belt Use: Routinely Smoking: Denies past/present Alcohol/day: Denies while Caffeine: not Drug Use: Denies past/present Chicken Pox: immunization MRSA: Denies What is your current living situation?: I presently have a place to live Problems where you live: no known problems In the past 12 months, utilities in danger of being shut off: no In past 12 months, lack of transportation kept you from medical appts, meetings, work, or getting things needed for daily living: no In the past 12 mos, have been you worried that your food would run out before you had money to buy more?: never true In the past 12 mos, the food you bought just didn't last and you didn't have m oney to buy more?: never true Smoking Status: Never smoker Do you use any of these nicotine containing products: None How often do you have a drink containing alcohol: never How often do you have six or more drinks on one occasion: Never AUDIT-C Alcohol total score: 0 Non-prescribed substance use: denies use How often does anyone, including family, friends and others, physically hurt you : never How often does anyone, including family, friends and others, insult or talk down to you: never How often does anyone, including family, friends and others, threaten you with harm: never How often does anyone, including family, friends and others, scream or curse at you: never Little interest or pleasure in doing things: several days Feeling down, depressed, or hopeless: not at all service: No Meds Home Medications and Allergies Home Medications Medication Instructions Recorded Confirmed Type vits no.126-ferrous fum 2 tab PO QDAY 12/07/22 07/02/23 History 28 mg iron-folic acid 800 mcg tablet (Classic ) Allergies Allergy/AdvReac Type Severity Reaction Status Date / Time No Known Drug Allergies Allergy Verified 07/02/23 11:06 Results Labs Labs: Laboratory Results - last 24 hr 07/02/23 07/02/23 07/02/23 11:52 14:12 15:40 WBC 6.10 RBC 4.57 Hgb 12.2 Hct 36.5 MCV 80 MCH 27 MCHC 33 RDW Coeff of Uzma 15.1 Plt Count 304 Neut % (Auto) 63.7 Lymph % (Auto) 30.5 [place] % (Auto) 4.6 Eos % (Auto) 0.7 Baso % (Auto) 0.3 Neut # (Auto) 3.89 Lymph # (Auto) 1.86 [place] # (Auto) 0.30 Eos # (Auto) 0.04 Baso # (Auto) 0.02 Abs Immat Gran (auto) 0.01 Imm/Tot Granulo (auto) 0.2 INR 0.93 APTT 29 Fibrinogen 570 H Vaginal Trichomonas No Trichomonas Seen Vaginal Yeast No Yeast Seen Vaginal Clue Cells No Clue Cells Seen Blood Type O Positive Antibody Screen NEGATIVE Vital Signs Vital Signs: Last Vital Signs Temp 98 F 07/03/23 06:17 Pulse 86 07/03/23 07:43 Resp 20 07/03/23 06:17 BP 112/57 L 07/03/23 07:43 Pulse Ox 100 07/03/23 07:43 Weight: 81.148 kg Height: 144.78 cm Anesthesia Procedures Epidural Insertion Patient Location: OB Start Time: 07:10 Stop Time: 08:10 Start Date: 07/03/23 Stop Date: 07/03/23 Reason for Block: procedure for pain Patient Position: sitting Performed By: Schuyler Pearl Preanesthetic Checklist: IV checked, risks and benefits discussed, monitors and equipment checked, pre-op evaluation, timeout performed and anesthesia consent Prep: chlorhexidine gluconate Monitoring: blood pressure monitoring, continuous pulse oximetry and heart rate Approach: midline Vertebral Space: lumbar (1-5) Epidural Technique: SANDRA saline Needle Type: Tuohy needle Injection Technique: continuous catheter Needle gauge: 17 Needle Length (cm): 10 cm Needle Insertion Depth (cm): 8 Catheter Gauge: 19 Catheter Type: multi-orifice Catheter at skin depth (cm): 15 Test Dose Result: negative and lidocaine 1.5% with epinephrine 1 to 200,000
[2023-07-03] MEDS: PHENYLEPHRINE 100 MCG/ML SYRINGE IVP ×4 (08:13→10:48)
--- NOTE | 2023-07-03 08:27 | PM.OBPNL ---
Subjective Date Seen: 07/03/23 Narrative: ?Jenifer is coping well with labor pain/contractions. ?Her partner is with her for support. ?Sherecently had an epidural placed for comfort and pain management.?Nurse reports she just had SROM with clear fluid, light pink bleeding noted with this. Has had no bright red bleeding since admission. appears comfortable and denies pressure or pain. Objective Exam: VSS, afebrile General Appearance:? Calm, cooperative. ?No acute distress. ? Psychiatric Exam: Alert and oriented, appropriate affect Abdomen: Gravid Ctx: ?Q 1-3 min apart. ? ? ?Strong FHTs: ?Baseline: 145. ? ? Variability: moderate. ?Accels: +. ? ?Decels: ?lates seen with low blood pressure, now resolved and no other decels noted at this time. SVE: deferred at this time. 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 at 38.4 gestation?? GBS positive Patient is coping well with challenges of labor.?? Labor type: Induced, Active labor? Category 1 FHR pattern.? complicated by: obesity, vaginal bleeding at 38 weeks, induction of labor? Medical IOL? Plan:?? Induction ongoing with IV Pitocin per protocol. Antibiotic prophylaxis treatment per protocol Continue with routine intrapartum cares as ordered.?? Patient encouraged to move and change positions to promote physiologic labor and .?? Epidural currently infusing for pain control per pt request. Anticipate progress to NVD. ?
[2023-07-03] MEDS: LACTATED RINGERS 1000 ML 1,000 ML 125 ML IV (10:26)
--- NOTE | 2023-07-03 11:11 | PM.OBPNL ---
Subjective Time Seen by Provider: 11:10 Date Seen: 07/03/23 Narrative: ?Jenifer is coping well with labor pain/contractions. ?Jay is with her for support, and health researcher present. ?She would like to continue with her epidural for comfort and pain management.?Currently she is not able to move her legs or wiggle her toes. She denies pressure with contractions. Objective Exam: VSS, afebrile General Appearance:? Calm, cooperative. ?No acute distress. ? Psychiatric Exam: Alert and oriented, appropriate affect Abdomen: Gravid Ctx: ?Q 2-3 min apart. ? ? ?Strong FHTs: ?Baseline: 145. ? ? Variability: mod. ?Accels: +. ? ?Decels: ?variables. SVE: 9.5/100/0 Membranes: ?SROM Vital Signs: Last Vital Signs Temp 97.9 F 07/03/23 10:37 Pulse 67 07/03/23 11:09 Resp 20 07/03/23 06:17 BP 108/58 L 07/03/23 11:09 Pulse Ox 99 07/03/23 11:10 Contractions Monitor mode: External Contraction pattern: Regular Contraction intensity: Strong/Firm Pitocin Rate (mU/min): 20 Assessment Assessment: active labor Station: 0 Amniotic Membrane Status: SROM Status: Category l Heart Rate Baseline: 145 Monitor Accelerations: Present Monitor Decelerations: None Plan Plan: Assessment:?? at 38.4 gestation?? GBS positive Patient is coping well with challenges of labor.?? Labor type: induced, active labor? Category 2 FHR pattern.? complicated by: obesity, vaginal bleeding at 38 weeks, induction of labor? Medical IOL? Plan:?? Anesthesia to adjust epidural Antibiotic prophylaxis treatment per protocol Continue with routine intrapartum cares as ordered.?? Patient encouraged to move and change positions to promote physiologic labor and .?? Continue IV Pitocin per protocol Anticipate progress to NVD soon. ?
--- NOTE | 2023-07-03 12:29 | W.PM.OBVAGDE ---
OB Procedure Vag Delivery Mother Details Mother Details: The patient is a 33 year-old, 3, Para 2, admitted on 07/02/23 at 38.4 weeks gestation. : 3 Para: 3 Weeks Gestation: 38.3 Admission Date: 07/03/23 Additional Details Amniotic Membrane Status: SROM Amniotic Membrane Rupture Date: 07/03/23 Amniotic Membrane Rupture Time: 08:15 Amniotic Membrane Fluid Description: Clear Analgesia/Anesthesia Type: Epidural Waterbirth: No Pitcoin: Yes Intrapartal Events: Labor Augmentation Induction Method: per pitocin protocol Labor Onset: 05:45 Complete: 11:16 Pushin:16 Heart: heart tones during second stage were continuously monitored, moderate variability with deep variables during pushing. Position change improved variables before delivery. Delivery Details Delivery Date: 07/03/23 Delivery Time: 11:33 Route of delivery: Infant Gender: Male Viability: Alive; Heart Rate Present Position at Delivery: OA Delivery Details: 33?y.o?at 38.4 weeks.? Jenifer was admitted with concerns for placental abruption with vaginal bleeding. Decision was made to induce labor and she was started on IV Pitocin per protocol. She labored overnight and this morning requested an epidural. Not long after placement she had SROM of clear fluid. The epidural rate was decreased by anesthesia as patient could not feel contractions or move her legs at all. She then began to feel some pressure and was found to be complete. ? ? She became complete at 1116.??She pushed in semi fowlers and right tilt positions effectively.? Spontaneous vaginal delivery at 1133 of?a viable?male .??Delivered in vertex OA position.??Shoulders delivered easily.? Spontaneous cry noted.?? placed low on maternal abdomen for a short cord.??Cord?was clamped and cut after a 5+ minute delay.? then placed skin to skin. ? Shoulder dystocia: no? Nuchal cord: no? Meconium stained?fluid: no, terminal mec noted Water : no? ? ? 8 at 1 minute and 9 at 5 minutes.? Weight is pending. ? Placenta delivered spontaneously and?complete?at 1145 with a?3 vessel?cord.??There were trailing membranes seen and one small part of the membrane was teased out with ring forceps as it detached from the rest. Discussed precautions for bleeding or infection with patient. Fundus was firm and bleeding minimal after placenta delivered. Bleeding controlled with fundal massage and?pitocin?for AMTSL.? ? Mother and infant were stable after delivery.? ? Lacerations:? none, small abrasions periurethral. Not bleeding. ? Bleeding?post delivery?was: minimal . ?The fundus was firm to palpation.? Blood loss: 300?mL.? Blood loss measurement type: QBL? ? ? Placenta sent to pathology for concerns of abruption. Sponge,?lap?and needles counts are correct.? Mother and infant were stable after delivery.? 1 Minute Interval Total Score: 8 5 Minute Interval Total Score: 9 Additional Details Shoulder Dystocia: No Placenta Delivery Time: 11:45 Placental Delivery Description: Spontaneous Procedure Done: Global Blood Loss: 300 Laceration: None Blood Loss Measurement Type: QBL Bakri Used: No Sponge/Need Count Correct: Yes Cord Vessel Description: 3 Vessels Event Summary Status: Mother and were stable after delivery. Disposition: floor
[2023-07-03] MEDS: IBUPROFEN 600 MG TABLET PO (14:47)
[2023-07-04 00:39] VITALS: BP 108/69; PULSE 91; RESP 18; TEMP 36.6; O2SAT 97
[2023-07-04 04:04] VITALS: BP 130/76; PULSE 86; RESP 18; TEMP 36.6; O2SAT 99
[2023-07-04 08:01] VITALS: BP 107/70; PULSE 83; RESP 18; O2SAT 99
--- NOTE | 2023-07-04 08:49 | PM.OBPNVD1 ---
OB - PN:Subj Subjective Date Seen: 07/04/23 Narrative: Jenifer is a 33 y.o. G 3 P 3 who was admitted to [facility] for induction of labor for suspected placenta abruption with vaginal bleeding at term. ?She had a NVD that was uncomplicated. The patient feels well. ?The pain is well controlled with current medications. ?She has no new complaints. ?She is breast feeding and reports things are going well. the patient has done well.? Vitals have been stable.? She has remained afebrile.? Has a good appetite, is tolerating a general diet. ?She is voiding without difficulty.? She is passing gas and has not had a bowel movement.? She is ambulating and denies any dizziness.? Has small amount of rubra lochia. Problems: none OB - PN: Obj Exam Physical Exam: Vital signs: Temp Pulse Resp BP Pulse Ox O2 Del Method 97.8 F 83 18 107/70 99 Room Air 07/04/23 04:04 07/04/23 08:01 07/04/23 08:01 07/04/23 08:01 07/04/23 08:01 07/04/23 08:01 Narrative: GENERAL APPEARANCE:? normal affect, alert, no distress MOOD:? appropriate CHEST:? clear to auscultation HEART:? regular rate and rhythm ABDOMEN:? soft, non-tender the uterine fundus is 1 below Umbilicus, Midline and is appropriate for the stage of recovery. PERINEUM:? mild edema of the perineum. EXTREMITIES:? normal and trace edema OB - PN: A/P Delivery Assessment and Plan (1) Obesity, morbid, BMI 40.0-49.9: Problem details: Weight loss during , current BMI 37.6 Status: Acute (2) care and examination immediately after delivery: Status: Acute (3) Lactating mother: Status: Acute Plan day: 1 Plan: routine care Comments: plan: Anticipate discharge tomorrow. , may see if needed
[2023-07-04] MEDS: IBUPROFEN 600 MG TABLET PO (09:49)
[2023-07-04] MEDS: DOCUSATE SODIUM 100 MG CAPSULE PO (09:50)
--- NOTE | 2023-07-04 13:26 | PM.ANPOST ---
Post Anesthesia Note Post Anesthesia Note Patient seen: Inpatient Respiratory Status: adequate Cardiovascular Status: adequate Mental Status: baseline Pain: adequate Temp: baseline Anesthetic awareness: N/A Complications: none Follow care: none
[2023-07-04 16:24] VITALS: BP 106/65; PULSE 68; RESP 18; TEMP 36.9; O2SAT 99
[2023-07-04 18:54] LABS: Rapid Plasma Reagin (RPR) Non Reactive (Non Reactive)
[2023-07-05 00:02] VITALS: BP 109/76; PULSE 87; RESP 18; TEMP 36.5; O2SAT 97
[2023-07-05 08:24] VITALS: BP 109/74; PULSE 81; RESP 16; TEMP 36.9; O2SAT 97
--- NOTE | 2023-07-05 08:30 | PM.OBDSVD1 ---
DS: Providers Provider Date Seen: 07/05/23 Date of admission: 07/02/23 12:20 Primary care physician: Not a Local Provider Admitting Clinician: Christen Dennis CNM Attending Physician on discharge: Christen Dennis CNM Date of Discharge: 07/05/23 DS: Diagnosis Discharge Diagnosis (1) Lactating mother: Status: Acute (2) care and examination immediately after delivery: Status: Acute (3) Encounter for induction of labor: Status: Acute Exam Narrative: Exam Narrative: GENERAL APPEARANCE:? normal affect, alert, no distress? MOOD:? appropriate? CHEST:? clear to auscultation and percussion? HEART:? regular rate and rhythm? ABDOMEN:? soft, non-tender the uterine fundus is u/1 and is appropriate for the stage of recovery.? EXTREMITIES:? normal and trace edema? Const: Vital Signs, click to edit/add: Vital Signs - 24 hr 07/04/23 16:24 07/05/23 00:02 07/05/23 08:24 Temperature 98.5 F 97.7 F Pulse Rate [Pulse Oximeter] 68 87 81 Respiratory Rate 18 18 Blood Pressure [Le ft Arm] 106/65 109/76 109/74 Pulse Oximetry 99 97 97 Oxygen Delivery Me thod Room Air Room Air Room Air Documenting provider has reviewed patient's vital signs: yes OB - DS: Summary Hospital Course Hospital Course: The patient is a 33 year old G 3 P 3003 at 38w4d weeks gestation that was admitted to the Center on 07/02/23 for IOL for vaginal bleeding. She had an uncomplicated vaginal delivery. She delivered a viable male infant. She is breast and bottle feeding. the patient has done well. Her pain is well controlled with current medications.? She has no new complaints.? Urinary output is adequate and she is voiding without difficulty.? Has a good appetite, is tolerating a general diet, is passing flatus, and has had a bowel movement.? Has small amount of rubra lochia.? She is ambulating well.? Train Caller was present for entirety of the visit. Peripartum Data delivery method: Vaginal Laceration description: None complications: none Gender: Male Discharge Plan: Home Status at Discharge Functional status at discharge: independent ambulation Overall status at discharge: patient is progressing back to baseline Time Spent with Patient Time attestation: Total time spent providing and/or coordinating discharge services: Discharge Plan Discharge Disposition: Home, Self-Care Date of Admission: 07/02/23 12:20 Attending Provider on Discharge: Christen Dennis Primary Care Provider: Provider,Not a Local Condition: Stable Anticipated Discharge Date/Time: 07/05/23 12:00 Discharge Medications: New docusate sodium 100 mg Capsule 100 mg PO BID PRNQty: 60 0RF ibuprofen 600 mg Tablet 600 mg PO Q6H PRNQty: 60 0RF Continued Classic 28 mg iron- 800 mcg tablet 2 tab PO QDAY Patient Comments: Gummy vitamin Rx Instructions: gummies Discharge Orders: Discharge Order (Routine); Ordered 07/05/23 Ordered By: Christen Dennis Patient Education: OB Vaginal/Breast Feeding Additional Instructions: Discharge instructions were reviewed with the patient including signs and symptoms of infection and home going medications.? Lifting Restrictions: 20 pounds for 6? weeks? ?? Do not drive while taking narcotic pain meds.? Off Work or School for 6 weeks.? ?? Symptoms to report to doctor:? -Bleeding that saturates more than one pad per hour? -Passing clots larger than the size of a golf ball? -Pain not relieved by prescribed medication? -Fever above 100.4 degrees Fahrenheit? -A foul vaginal odor? -Difficulty in emotions, mood and functions? -Thoughts of hurting yourself and/or ? -Painful, reddened area in your breast? -Any drainage, redness or tenderness in your IV/epidural site? -Severe headache that doesn't improve after taking medications? -Changes in vision, including temporary loss of vision, blurred vision, and/or light sensitivity? -Upper abdominal pain (usually under ribs on the right side)? -Decrease in urination or painful, frequent urinating? -Chest pain? -Shortness of breath? -Tenderness or pain with redness and/swelling in the calf(s) of your leg? ?? Follow Up in clinic in 2 and 6 weeks.? ?? consultation services are available to all mothers and babies for the first year after delivery.? To make an appointment, please call [phone].? ? Activity Level: No Restrictions Discharge Diet: Regular Follow Up Appointments: [facility] [Provider Group] Forms: MyHealth Info Instructions
== END 2023-07-05 12:20 | disposition home or self-care (01) | DRG 807 ==
LOC: OB OUT 12:21 → OB 12:21
PROVIDERS: Advanced Practice Midwife; Obstetrics & Gynecology; Admitting Provider Advanced Practice Midwife; Visit Provider Advanced Practice Midwife
DX: O67.9 Intrapartum hemorrhage, unspecified (principal); Z37.0 Single live birth; O99.214 Obesity complicating childbirth; O99.824 Streptococcus B carrier state complicating childbirth; Z3A.38 38 weeks gestation of pregnancy
CPT/HCPCS: 01967; 36415; 85025; 85384; 85610; 85730; 86592; 86850; 86900; 86901; 87210; 88307; G0463; T1013; A9270; J0290; J2371; J2795; J7120

== ENCOUNTER 2023-10-11 15:46 | Inpatient (IN) | payer MEDICAID, SELFPAY ==
[2023-10-11] VITALS (29 sets, daily range): BP systolic 101–119; BP diastolic 50–75; PULSE 76–113; RESP 18; TEMP 36.7–36.8; O2SAT 95–100; BMI 39.0; BMI 36.4
--- NOTE | 2023-10-11 16:11 | CRLHL7_ITS ---
For Patients: As a result of the Century Cures Act, medical imaging exams and procedure reports are released immediately into your electronic medical record. You may view this report before your referring provider. If you have questions, please contact your health care provider. INDICATION: Right lower quadrant and left lower quadrant abdominal pain. TECHNIQUE: CT of the abdomen and pelvis acquired with 89 cc Isovue 370 IV contrast. Coronal and sagittal reconstructions. COMPARISON: None. FINDINGS: Liver: Diffuse hepatic steatosis. No focal liver lesions. Hepatic and portal veins are patent. Gallbladder and bile ducts: Unremarkable. No biliary dilation. Spleen: Unremarkable. Pancreas: Unremarkable. Adrenal glands: Unremarkable. Kidneys: Symmetric enhancement. No hydronephrosis or ureteral dilation. No obstructing urinary calculi identified. No bladder wall thickening. Reproductive structures: IUD in the uterus. Unremarkable adnexa. GI tract/Peritoneum: No small bowel dilation. There is edema in the central mesentery inferior to the pancreas extending into the right lower quadrant. Edema surrounds the transverse duodenum and proximal jejunum with mild wall thickening. Associated enlarged mesenteric lymph node to the left of midline measuring 1.5 cm in short axis (series 2, image 59). Moderate amount of stool throughout the colon. Negative appendix. No intraperitoneal free air. Vasculature: Abdominal aorta is normal in caliber. Mesenteric arteries are patent. Lymph nodes: Enlarged mesenteric lymph node as described above. No retroperitoneal lymphadenopathy. Abdominal Wall: Small fat containing umbilical hernia. Bones: Unremarkable. Lower chest: Bibasilar atelectasis or scarring. IMPRESSION: 1. Edema in the central mesentery extending into the right lower quadrant, surrounding the transverse duodenum and proximal jejunum with mild wall thickening. Associated enlarged mesenteric lymph node. Edema appears separate from the pancreas however correlation with serum amylase and lipase is recommended to exclude pancreatitis. Findings could be due to underlying enteritis but overall nonspecific appearance. 2. Diffuse hepatic steatosis. Please note that all CT scans at this facility use dose modulation, iterative reconstruction, and/or weight-based dosing when appropriate to reduce radiation dose to as low as reasonably achievable. Dictated by Arline Coleman MD @ 10/11/2023 7:03:14 PM (Electronically Signed)
--- NOTE | 2023-10-11 16:13 | ED_ITS ---
HPI - General Adult General Date Seen: 10/11/23 Chief complaint: Abdominal Pain Stated complaint: stomach pain Time Seen by Provider: 10/11/23 16:01 History of Present Illness HPI narrative: Very pleasant 33-year-old female who is about 3 months , who had an IUD placed about 8 weeks ago (lead to about 1 month of light vaginal bleeding, now no. For about 1 month), elevated BMI, but otherwise generally healthy, with no previous abdominal surgeries, presenting to the ER today with bilateral lower quadrant and periumbilical abdominal pain. Symptoms began overnight last night about 3:00 a.m. and persistent since onset. The pain comes and goes in waves but that no clear pattern for triggering at her making it better. It feels painful and bloated. Sometimes she gets nauseous but she has not been vomiting. No bowel movements today but yesterday bowel movements were brown and normal. No recent constipation or diarrhea. No bloody stools. Urination has been normal. She has not had a menstrual cycle in over a month. She recalls that she had about a month of very light vaginal bleeding after placement of her IUD, but since then no further vaginal bleeding. She is not having any fever or chills. No injury. Related Data Home Medications ?Medication ?Instructions ?Recorded ?Confirmed vits no.126-ferrous fum 2 tab PO QDAY 12/07/22 08/15/23 28 mg iron-folic acid 800 mcg tablet (Classic ) Allergies Allergy/AdvReac Type Severity Reaction Status Date / Time No Known Drug Allergies Allergy Verified 10/11/23 17:35 [facility] Medical History (Updated 10/11/23 @ 22:32 by Aristides Gay MD) Obesity, morbid, BMI 40.0-49.9 ?E66.01 - Morbid (severe) obesity due to excess calories (ICD-10) Hx of abnormal cervical Pap smear ?Z87.42 - Personal history of other diseases of the female genital tract (ICD-10) History of depression ?Z86.59 - Personal history of other mental and behavioral disorders (ICD-10) Syncope and collapse ?R55 - Syncope and collapse (ICD-10) History of vaginal delivery History of chorioamnionitis (2012) ?Z87.59 - Personal history of other complications of , childbirth and the puerperium (ICD-10) Surgical History No significant past surgical history Social History (Updated 07/18/23 @ 13:15 by Cara Basilio CNM) Narrative: SOCIAL Education: 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 - partner Lives with: partner and 2 children Pets: none Abuse: Denies past/present Special Diet: Denies Ok with a blood transfusion: yes Culture or samaritan beliefs: denies RISK FACTORS Exercise Times/wk: walks a lot at work Depression/Anxiety: denies Seat Belt Use: Routinely Smoking: Denies past/present Alcohol/day: Denies while Caffeine: not Drug Use: Denies past/present Chicken Pox: immunization MRSA: Denies What is your current living situation?: I presently have a place to live Problems where you live: no known problems In the past 12 months, utilities in danger of being shut off: no In past 12 months, lack of transportation kept you from medical appts, meetings, work, or getting things needed for daily living: no In the past 12 mos, have been you worried that your food would run out before you had money to buy more?: never true In the past 12 mos, the food you bought just didn't last and you didn't have money to buy more?: never true Smoking Status: Never smoker Do you use any of these nicotine containing products: None How often do you have a drink containing alcohol: never How often do you have six or more drinks on one occasion: Never AUDIT-C Alcohol total score: 0 Non-prescribed substance use: denies use How often does anyone, including family, friends and others, physically hurt you : never How often does anyone, including family, friends and others, insult or talk down to you: never How often does anyone, including family, friends and others, threaten you with harm: never How often does anyone, including family, friends and others, scream or curse at you: never Little interest or pleasure in doing things: several days Feeling down, depressed, or hopeless: not at all service: No Exam Narrative: Exam Narrative: Constitutional: Appears well-developed and well-nourished. Alert. Uncomfortable appearing. HENT: Head: Atraumatic. Nose: Nose normal. Mouth/Throat: Oral mucosa is clear and moist. no trismus. Pharynx normal. Eyes: Conjunctivae normal. EOM normal. Pupils equal, round, and reactive to light. No scleral icterus. Neck: Normal range of motion. Neck supple. No tracheal deviation present. Cardiovascular: Normal rate, regular rhythm. No gallop. No friction rub. No murmur heard. Symmetric radial artery pulses Pulmonary/Chest: Effort normal. No stridor. No respiratory distress. No wheezes. No rales. No rhonchi . Abdominal: Soft. Bowel sounds normal. Somewhat protuberant due to body habitus but non tympanic and no distension. No mass. Right lower quadrant, suprapubic, left lower quadrant tenderness. No rebound. No guarding. He mild periumbilical and epigastric tenderness. No right upper quadrant tenderness or Parker sign. No left upper quadrant tenderness. No CVA tenderness. Musculoskeletal: RUE: Normal range of motion. No tenderness. No deformity LUE: Normal range of motion. No tenderness. No deformity RLE: Normal range of motion. No edema. No tenderness. No deformity LLE: Normal range of motion. No edema. No tenderness. No deformity Neurological: Alert and oriented to person, place, and time. Normal strength. CN II-VII intact. No sensory deficit. GCS eye subscore is 4. GCS verbal subscore is 5. GCS motor subscore is 6. Normal coordination Skin: Skin is warm and dry. No rash noted. No pallor. Normal capillary refill. Psychiatric: Normal mood. Normal affect allowing for discomfort. She is very polite.. Const: Vital Signs, click to edit/add: Vital Signs - 24 hr 10/11/23 15:50 10/11/23 17:00 10/11/23 17:11 Temperature 98.2 F Pulse Rate 85 95 Pulse Rate [Pulse Oximeter] 92 Respiratory Rate 18 Blood Pressure 119/66 Blood Pressure [Ri ght Upper Arm] 108/75 Pulse Oximetry 97 97 97 Oxygen Delivery Me thod Room Air 10/11/23 17:15 10/11/23 17:30 10/11/23 18:04 Temperature Pulse Rate 93 86 82 Pulse Rate [Pulse Oximeter] Respiratory Rate Blood Pressure 111/72 Blood Pressure [Ri ght Upper Arm] Pulse Oximetry 97 97 96 Oxygen Delivery Me thod 10/11/23 18:05 08/28/24 18:15 10/11/23 18:30 Temperature Pulse Rate 82 83 84 Pulse Rate [Pulse Oximeter] Respiratory Rate Blood Pressure Blood Pressure [Ri ght Upper Arm] Pulse Oximetry 96 96 96 Oxygen Delivery Me thod 10/11/23 18:45 10/11/23 19:00 10/11/23 19:02 Temperature Pulse Rate 83 85 89 Pulse Rate [Pulse Oximeter] Respiratory Rate Blood Pressure 105/58 L Blood Pressure [Ri ght Upper Arm] Pulse Oximetry 96 96 97 Oxygen Delivery Me thod 10/11/23 19:15 10/11/23 19:30 10/11/23 19:45 Temperature Pulse Rate 91 93 92 Pulse Rate [Pulse Oximeter] Respiratory Rate Blood Pressure Blood Pressure [Ri ght Upper Arm] Pulse Oximetry 98 98 96 Oxygen Delivery Me thod 10/11/23 20:00 10/11/23 20:02 10/11/23 20:15 Temperature Pulse Rate 90 89 91 Pulse Rate [Pulse Oximeter] Respiratory Rate Blood Pressure 107/67 Blood Pressure [Ri ght Upper Arm] Pulse Oximetry 97 96 95 Oxygen Delivery Me thod 10/11/23 20:30 10/11/23 20:45 10/11/23 21:00 Temperature Pulse Rate 88 95 97 Pulse Rate [Pulse Oximeter] Respiratory Rate Blood Pressure Blood Pressure [Ri ght Upper Arm] Pulse Oximetry 99 97 96 Oxygen Delivery Me thod 10/11/23 21:02 10/11/23 21:15 Temperature Pulse Rate 88 90 Pulse Rate [Pulse Oximeter] Respiratory Rate Blood Pressure 101/57 L Blood Pressure [Ri ght Upper Arm] Pulse Oximetry 99 98 Oxygen Delivery Me thod Course Course ED Course: Recheck-at about 8:00 p.m. having worsening recurrent pain. Repeat lot ordered. Discussed workup so far with the patient and her . Although she had initially declined freelance interpreter/translator, she now requests 1 given the complexity of her conversation. Reevaluation(s) Reevaluation #1: Recheck-discussed through iPad based Arabic-bilingual interpreter. Labs show sign of pancreatitis and there sign of pancreatitis on her CT scan. Cause unclear. She does not drink alcohol. Concern would be for possible gallstones. We need gallbladder ultrasound for further evaluation. She will likely require hospitalization for pain control. Also being in the hospital allows us to keep her hydrated with IVs, NPO, which usually helps pancreatitis heal. Reevaluation #2: Recheck-gallbladder ultrasound does show a gallstone, but not in the bile duct. CBD is 3 mm (normal). Discussed with our surgeon, Dr. Rosas, and our hospitalist, Dr. Whitfield. Although it is possible the patient has a common bile duct stone causing her pancreatitis, not definitive. Plan will be to admit her here for pain management and IV fluids and treatment of her pancreatitis with plan for for trending labs in the morning and MRCP tomorrow. If labs worsen or MRCP confirms a common bile duct stone, may ultimately need need transfer for ERCP, but will try to manage her locally, if possible. Vital Signs Vital signs: Initial Vital Signs Temperature 98.2 F 10/11/23 15:50 Temperature Source Temporal Artery Scan 10/11/23 15:50 Pulse Rate 92 10/11/23 15:50 Respiratory Rate 18 10/11/23 15:50 Blood Pressure 108/75 10/11/23 15:50 Blood Pressure Mean 86 10/11/23 15:50 Pulse Oximetry 97 10/11/23 15:50 Oxygen Delivery Method Room Air 10/11/23 15:50 Vital Signs Temperature 98.2 F 10/11/23 15:50 Pulse Rate 92 10/11/23 15:50 Respiratory Rate 18 10/11/23 15:50 Blood Pressure 108/75 10/11/23 15:50 Pulse Oximetry 97 10/11/23 15:50 Oxygen Delivery Method Room Air 10/11/23 15:50 Temperature 98.2 F 10/11/23 15:50 Pulse Rate 90 10/11/23 21:15 Respiratory Rate 18 10/11/23 15:50 Blood Pressure 101/57 L 10/11/23 21:02 Pulse Oximetry 98 10/11/23 21:15 Oxygen Delivery Method Room Air 10/11/23 15:50 Medications Administered Medications: Generic Name Dose Route Start Last Admin Trade Name Freq PRN Reason Stop Dose Admin Hydromorphone HCl 0.5 mg 10/11/23 16:10 10/11/23 17:00 Hydromorphone 0.5 Mg/0.5 Ml Inj IVP 0.5 mg Q1H PRN Administration Pain Hydromorphone HCl 0.5 mg 10/11/23 19:17 10/11/23 19:40 Hydromorphone 0.5 Mg/0.5 Ml Inj IVP 0.5 mg Q1H PRN Administration Pain Discontinued Medications Generic Name Dose Route Start Last Admin Trade Name Freq PRN Reason Stop Dose Admin Sodium Chloride 1,000 mls @ 1,000 mls/hr 10/11/23 16:15 10/11/23 18:26 0.9 % Sodium Chloride 1000 Ml IV 10/11/23 17:14 Infused .Q1H MATTHEW Infusion Ketorolac Tromethamine 15 mg 10/11/23 16:10 10/11/23 17:00 Ketorolac 15 Mg/Ml Inj IVP 10/11/23 16:11 15 mg ONCE ONE Administration Ondansetron HCl 4 mg 10/11/23 16:10 10/11/23 17:00 Ondansetron 2 Mg/Ml Inj IVP 10/11/23 16:11 4 mg ONCE ONE Administration Medical Decision Making MDM Narrative Medical decision making narrative: Presented to the Emergency Department with periumbilical and generalized abdominal pain. The differential diagnosis of abdominal pain includes: Appendicitis, Bowel Obstruction, Ulcer, Ischemia, Cholecystitis, Diverticulitis, Pancreatitis, UTI, kidney stone, Enteritis/Colitis, amongst many other etiologies. Laboratory workup and CT scan do show evidence for pancreatitis. She does not drink alcohol. She is not currently on any meds that would cause pancreatitis. No history of hypertriglyceridemia. Consider gallstones as a cause. Gallbladder ultrasound does reveal a 1 cm stone in the gallbladder but no evidence for cholecystitis and a normal common bile duct diameter on ultrasound. No ultrasound evidence for choledocholithiasis. In discussion with hospitalist and surgeon will hospitalize the patient here for treatment of her pancreatitis with further workup for potential gallstones including follow-up labs and MRCP tomorrow. Lab Data Labs: Lab Results 10/11/23 10/11/23 Range/Units 16:27 16:57 WBC 10.34 (4.50-11.00) K/uL RBC 4.99 (4.00-5.20) m/uL Hgb 12.6 (12.0-16.0) gm/dL Hct 38.8 (33.0-51.0) % MCV 78 L (80-100) fL MCH 25 L (26-34) pg MCHC 33 (32-36) gm/dL RDW Coeff of [place] 14.2 (11.5-15.5) % Plt Count 342 (140-440) K/uL Neut % (Auto) 70.7 (42.0-72.0) % Lymph % (Auto) 21.7 (20-44) % [place] % (Auto) 6.7 (0.0-11.0) % Eos % (Auto) 0.4 (0.0-7.0) % Baso % (Auto) 0.3 (0.0-3.0) % Neut # (Auto) 7.32 H (1.7-7.0) K/uL Lymph # (Auto) 2.24 (0.90-2.90) K/uL [place] # (Auto) 0.70 (0.00-0.90) K/UL Eos # (Auto) 0.04 (0.00-0.50) K/uL Baso # (Auto) 0.03 (0.00-0.30) K/uL Abs Immat Gran (auto) 0.02 (0.00-0.30) K/uL Imm/Tot Granulo (auto) 0.2 % Sodium 139 (135-149) mmol/L Potassium 3.5 L (3.6-5.1) mmol/L Chloride 107 (96-114) mmol/L Carbon Dioxide 23 (20-32) mmol/L Anion Gap 9 (7-15) mEq/L BUN 13 (5-24) mg/dL Creatinine 0.5 (0.5-1.5) mg/dL Estimated Creat Clear 208.20 Estimated GFR 128 ml/min Glucose 102 (60-115) mg/dL Calcium 8.6 (8.4-10.6) mg/dL Total Bilirubin 0.4 (0.1-1.5) mg/dL AST 21 (12-35) U/L ALT 16 (4-35) U/L Alkaline Phosphatase 96 (40-150) U/L Total Protein 7.5 (6.0-8.3) g/dL Albumin 4.5 (3.3-5.0) g/dL Lipase 675 H (23-300) U/L Urine Color Yellow (Yellow) Urine Appearance Clear (Clear) Urine pH 5.5 (5.0-8.5) Ur Specific [place] >= 1.030 (1.000-1.030) Urine Protein Negative (Negative) Urine Glucose (UA) Negative (Negative) Urine Ketones Negative (Negative) Urine Blood Negative (Negative) Urine Nitrite Negative (Negative) Urine Bilirubin Negative (Negative) Urine Urobilinogen 0.2 (0.2-1.0) Ur Leukocyte Esterase Negative (Negative) Urine RBC 0-2 (0-2) Urine WBC 2-5 (0-5) Ur Squamous Epith Cells Moderate A (None-Few) Urine Bacteria Few A (None) Urine HCG, Qual Negative (Negative) Imaging Data CT scan - abdomen: Attestation: I have reviewed the pertinent imaging results. Radiologist's impression: IMPRESSION: 1. Edema in the central mesentery extending into the right lower quadrant, surrounding the transverse duodenum and proximal jejunum with mild wall thickening. Associated enlarged mesenteric lymph node. Edema appears separate from the pancreas however correlation with serum amylase and lipase is recommended to exclude pancreatitis. Findings could be due to underlying enteritis but overall nonspecific appearance. 2. Diffuse hepatic steatosis. Discharge Plan Discharge Clinical Impression: Acute pancreatitis, Gallstones Prescriptions: No Action Classic 28 mg iron- 800 mcg tablet 2 tab PO QDAY Patient Comments: Gummy vitamin Rx Instructions: sterling Follow Up/Referrals: Provider,Not a Local [Primary Care Provider] -
[2023-10-11 16:49] LABS: Ur HCG Qualitative* Negative (Negative)
[2023-10-11] MEDS: KETOROLAC 15 MG/ML inj IVP (17:00)
[2023-10-11] MEDS: ONDANSETRON 2 MG/ML inj 4 MG IVP (17:00)
[2023-10-11] MEDS: HYDROmorphone 0.5 mg/0.5 ml inj IVP ×3 (17:00→22:00)
[2023-10-11 17:01] LABS: Appearance Urine Clear (Clear); Bilirubin Urine Negative (Negative); Blood Urine Negative (Negative); Color Urine Yellow (Yellow); Glucose Urine Negative (Negative); Ketones Urine Negative (Negative); Leukocyte Esterase Urine Negative (Negative); Nitrite Urine Negative (Negative); Protein Urine Negative (Negative); Specific Gravity Urine >= 1.030 (1.000-1.030); Urobilinogen Urine 0.2 (0.2-1.0); pH Urine 5.5 (5.0-8.5)
[2023-10-11 17:06] LABS: Bacteria Urine Few; RBC Urine 0-2 (0-2); Squamous Epithelial Cell Urine Moderate (None-Few)
[2023-10-11 17:06] LABS: Basophils Absolute Auto 0.03 K/uL (0.00-0.30); Basophils Percent Auto 0.3 % (0.0-3.0); Eosinophils Absolute Auto 0.04 K/uL (0.00-0.50); Eosinophils Percent Auto 0.4 % (0.0-7.0); Hematocrit 38.8 % (33.0-51.0); Hemoglobin* 12.6 gm/dL (12.0-16.0); Immature Granulocytes Abs Auto 0.02 K/uL (0.00-0.30); Immature Granulocytes Pct Auto 0.2 %; Lymphocytes Absolute Auto 2.24 K/uL (0.90-2.90); Lymphocytes Percent Auto 21.7 % (20-44); Mean Corpuscular HGB Conc 33 gm/dL (32-36); Mean Corpuscular Hemoglobin 25 pg (26-34); Mean Corpuscular Volume 78 fL (80-100); Monocytes Percent Auto 6.7 % (0.0-11.0); Neutrophils Absolute Auto 7.32 K/uL (1.7-7.0); Neutrophils Percent Auto 70.7 % (42.0-72.0); Platelet Count* 342 K/uL (140-440); RDW Coefficient of Variation % 14.2 % (11.5-15.5); Red Blood Count 4.99 m/uL (4.00-5.20); White Blood Count* 10.34 K/uL (4.50-11.00)
[2023-10-11 17:19] LABS: Slide Review Reflex No
[2023-10-11] MEDS: 0.9 % SODIUM CHLORIDE 1000 ml 1,000 ML IV (17:23)
[2023-10-11 17:34] LABS: Albumin* 4.5 g/dL (3.3-5.0); Chloride* 107 mmol/L (96-114); Sodium* 139 mmol/L (135-149)
[2023-10-11 17:35] LABS: Potassium* 3.5 mmol/L (3.6-5.1)
[2023-10-11 17:36] LABS: Creatinine* 0.5 mg/dL (0.5-1.5); Estimated Glomerular Filt Rate 128 ml/min
[2023-10-11 17:37] LABS: Alanine Aminotransferase* 16 U/L (4-35); Alkaline Phosphatase* 96 U/L (40-150); Anion Gap 9 mEq/L (7-15); Aspartate Amino Transferase* 21 U/L (12-35); Bilirubin Total* 0.4 mg/dL (0.1-1.5); Blood Urea Nitrogen* 13 mg/dL (5-24); Calcium* 8.6 mg/dL (8.4-10.6); Carbon Dioxide* 23 mmol/L (20-32); Glucose* 102 mg/dL (60-115); Lipase* 675 U/L (23-300); Total Protein* 7.5 g/dL (6.0-8.3)
--- NOTE | 2023-10-11 19:08 | CRLHL7_ITS ---
For Patients: As a result of the Century Cures Act, medical imaging exams and procedure reports are released immediately into your electronic medical record. You may view this report before your referring provider. If you have questions, please contact your health care provider. INDICATION: Pancreatitis, abdominal pain TECHNIQUE: Ultrasound abdomen limited. Sonographic images of the gallbladder and biliary tree were obtained using mota-scale and color Doppler images. COMPARISON: None FINDINGS: Liver: The liver parenchyma is normal in echotexture. Gallbladder: An echogenic gallstone measuring 1 cm is seen near the gallbladder neck. The gallbladder wall is normal in appearance. No pericholecystic fluid is present. Common bile duct: 3 mm. No intrahepatic biliary ductal dilatation seen. Vascular: Proximal abdominal aorta and IVC are not demonstrated. IMPRESSION: 1. An echogenic gallstone measuring 1 cm is seen near the gallbladder neck. Dictated by Franc Rose MD @ 10/11/2023 9:29:08 PM Dictated by: Franc Rose MD @ 10/11/2023 21:29:14 (Electronically Signed)
--- NOTE | 2023-10-11 22:41 | P.IMHP_ITS ---
Hospitalist- H&P: HPI History of Present Illness Date Seen: 10/11/23 Chief complaint: stomach pain Narrative: ADMISSION HISTORY AND PHYSICAL - HOSPITALIST Chief Complaint: HPI: This HPI is from ED MD. I verified the history with Jenifer upon arrival to the floor. She had on 07/03/23. She is bilingual; does not need an interpretor. Very pleasant 33-year-old female who is about 3 months , who had an IUD placed about 8 weeks ago (spotted for a month) elevated BMI, but otherwise generally healthy, with no previous abdominal surgeries, presenting to the ER today with bilateral lower quadrant and periumbilical abdominal pain. Symptoms began overnight last night about 3:00 a.m. and persistent since onset. The pain comes and goes in waves but that no clear pattern for triggering at her making it better. It feels painful and bloated. Sometimes she gets nauseous but she has not been vomiting. No bowel movements today but yesterday bowel movements were brown and normal. No recent constipation or diarrhea. No bloody stools. Urination has been normal. She has not had a menstrual cycle in over a month. She is not having any fever or chills. No injury. ER COURSE: CODE STATUS: FULL CODE EMERGENCY CONTACT PLAN: Jay Lamas Rel To Pat Cell I've updated the PFSH, medications and allergies in the Expanse tabs. INVESTIGATIONS: LABS/MICRO/ECG/IMAGING CBC is unremarkable. Her MCV is 78 but her hemoglobin is 12.6. She has a normal white blood cell count. Normal platelets. Chemistries are normal. Mild hypokalemia. LFTs are normal. Lipase is 675. Urine is clear. She has a negative hCG. Abdomen pelvic CT 1. Edema in the central mesentery extending into the right lower quadrant, surrounding the transverse duodenum and proximal jejunum with mild wall thickening. Associated enlarged mesenteric lymph node. Edema appears separate from the pancreas however correlation with serum amylase and lipase is recommended to exclude pancreatitis. Findings could be due to underlying enteritis but overall nonspecific appearance. 2. Diffuse hepatic steatosis. Right upper quadrant ultrasound IMPRESSION: 1. An echogenic gallstone measuring 1 cm is seen near the gallbladder neck REVIEW OF SYSTEMS: 12-point ROS completed with patient and negative unless otherwise stated in HPI or below. PHYSICAL EXAM: CONSTITUTIONAL: Conversive, good historian. A/O. Knows setting and context. VITAL SIGNS: see record. HEENT: Normocephalic, atraumatic. PERRL, EOMI, conjunctivae pink, no scleral icterus. Ears and nose externally normal. Pharynx normal. NECK: No JVD. No carotid bruit, no thyromegaly, no adenopathy. CHEST: Clear to auscultation bilaterally HEART: S1 and S2 normal. No harsh murmurs. Edema ABDOMEN: obese. tender to palpation generally. NEURO: Cranial nerves intact. Grossly intact. No asymmetric findings. SKIN: No rashes, petechiae, concerning changes PSYCHIATRIC: Euthymic. ADMIT TO MEDSURG: FLOOR CARE DVT: SCDs, ambulation GI: PO intake, PPI Time spent: Today I spent 75 minutes seeing the patient, discussing the patient with ER staff, reviewing Expanse and EPIC notes/diagnostics, discussing the care plan with our care time that includes social work, PT/OT, pharmacy, RT, usp and documenting my impressions and plan in the medical record. [facility] Medical History (Updated 10/11/23 @ 23:18 by Whitley Whitfield MD) Obesity, morbid, BMI 40.0-49.9 ?E66.01 - Morbid (severe) obesity due to excess calories (ICD-10) Hx of abnormal cervical Pap smear ?Z87.42 - Personal history of other diseases of the female genital tract (ICD-10) History of depression ?Z86.59 - Personal history of other mental and behavioral disorders (ICD-10) Syncope and collapse ?R55 - Syncope and collapse (ICD-10) History of vaginal delivery History of chorioamnionitis (2012) ?Z87.59 - Personal history of other complications of , childbirth and the puerperium (ICD-10) Surgical History No significant past surgical history Social History (Updated 07/18/23 @ 13:15 by Cara Basilio CNM) Narrative: SOCIAL Education: 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 - partner Lives with: partner and 2 children Pets: none Abuse: Denies past/present Special Diet: Denies Ok with a blood transfusion: yes Culture or cheondoism beliefs: denies RISK FACTORS Exercise Times/wk: walks a lot at work Depression/Anxiety: denies Seat Belt Use: Routinely Smoking: Denies past/present Alcohol/day: Denies while Caffeine: not Drug Use: Denies past/present Chicken Pox: immunization MRSA: Denies What is your current living situation?: I presently have a place to live Problems where you live: no known problems In the past 12 months, utilities in danger of being shut off: no In past 12 months, lack of transportation kept you from medical appts, meetings, work, or getting things needed for daily living: no In the past 12 mos, have been you worried that your food would run out before you had money to buy more?: never true In the past 12 mos, the food you bought just didn't last and you didn't have money to buy more?: never true Smoking Status: Never smoker Do you use any of these nicotine containing products: None How often do you have a drink containing alcohol: never How often do you have six or more drinks on one occasion: Never AUDIT-C Alcohol total score: 0 Non-prescribed substance use: denies use How often does anyone, including family, friends and others, physically hurt you : never How often does anyone, including family, friends and others, insult or talk down to you: never How often does anyone, including family, friends and others, threaten you with harm: never How often does anyone, including family, friends and others, scream or curse at you: never Little interest or pleasure in doing things: several days Feeling down, depressed, or hopeless: not at all service: No Meds Home Medications and Allergies Home Medications ?Medication ?Instructions ?Recorded ?Confirmed ?Type vits no.126-ferrous fum 2 tab PO QDAY 12/07/22 08/15/23 History 28 mg iron-folic acid 800 mcg tablet (Classic ) Allergies Allergy/AdvReac Type Severity Reaction Status Date / Time No Known Drug Allergies Allergy Verified 10/11/23 17:35 Exam Const: Vital Signs, click to edit/add: Vital Signs - 24 hr 10/11/23 15:50 10/11/23 17:00 10/11/23 17:11 Temperature 98.2 F Pulse Rate 85 95 Pulse Rate [Pulse Oximeter] 92 Respiratory Rate 18 Blood Pressure 119/66 Blood Pressure [Ri ght Upper Arm] 108/75 Pulse Oximetry 97 97 97 Oxygen Delivery Me thod Room Air 10/11/23 17:15 10/11/23 17:30 10/11/23 18:04 Temperature Pulse Rate 93 86 82 Pulse Rate [Pulse Oximeter] Respiratory Rate Blood Pressure 111/72 Blood Pressure [Ri ght Upper Arm] Pulse Oximetry 97 97 96 Oxygen Delivery Me thod 10/11/23 18:05 10/11/23 18:15 10/11/23 18:30 Temperature Pulse Rate 82 83 84 Pulse Rate [Pulse Oximeter] Respiratory Rate Blood Pressure Blood Pressure [Ri ght Upper Arm] Pulse Oximetry 96 96 96 Oxygen Delivery Me thod 10/11/23 18:45 10/11/23 19:00 10/11/23 19:02 Temperature Pulse Rate 83 85 89 Pulse Rate [Pulse Oximeter] Respiratory Rate Blood Pressure 105/58 L Blood Pressure [Ri ght Upper Arm] Pulse Oximetry 96 96 97 Oxygen Delivery Me thod 10/11/23 19:15 10/11/23 19:30 10/11/23 19:45 Temperature Pulse Rate 91 93 92 Pulse Rate [Pulse Oximeter] Respiratory Rate Blood Pressure Blood Pressure [Ri ght Upper Arm] Pulse Oximetry 98 98 96 Oxygen Delivery Me thod 10/11/23 20:00 10/11/23 20:02 10/11/23 20:15 Temperature Pulse Rate 90 89 91 Pulse Rate [Pulse Oximeter] Respiratory Rate Blood Pressure 107/67 Blood Pressure [Ri ght Upper Arm] Pulse Oximetry 97 96 95 Oxygen Delivery Me thod 10/11/23 20:30 10/11/23 20:45 10/11/23 21:00 Temperature Pulse Rate 88 95 97 Pulse Rate [Pulse Oximeter] Respiratory Rate Blood Pressure Blood Pressure [Ri ght Upper Arm] Pulse Oximetry 99 97 96 Oxygen Delivery Me thod 10/11/23 21:02 10/11/23 21:15 10/11/23 21:30 Temperature Pulse Rate 88 90 92 Pulse Rate [Pulse Oximeter] Respiratory Rate Blood Pressure 101/57 L Blood Pressure [Ri ght Upper Arm] Pulse Oximetry 99 98 98 Oxygen Delivery Me thod 10/11/23 21:45 10/11/23 22:10 10/11/23 22:15 Temperature Pulse Rate 92 102 H 106 H Pulse Rate [Pulse Oximeter] Respiratory Rate Blood Pressure Blood Pressure [Ri ght Upper Arm] Pulse Oximetry 100 100 100 [facility] 22:30 Temperature Pulse Rate 113 H Pulse Rate [Pulse Oximeter] Respiratory Rate Blood Pressure Blood Pressure [Ri ght Upper Arm] Pulse Oximetry 97 Oxygen Delivery [facility] Hospitalist - H&P: Result Labs Labs: Short CBC 10/11/23 Range/Units 16:57 WBC 10.34 (4.50-11.00) K/uL Hgb 12.6 (12.0-16.0) gm/dL Hct 38.8 (33.0-51.0) % Plt Count 342 (140-440) K/uL BMP 10/11/23 16:57 Sodium 139 Potassium 3.5 L Chloride 107 Carbon Dioxide 23 BUN 13 Creatinine 0.5 Glucose 102 Calcium 8.6 Liver Function 10/11/23 Range/Units 16:57 Total Bilirubin 0.4 (0.1-1.5) mg/dL AST 21 (12-35) U/L ALT 16 (4-35) U/L Alkaline Phosphatase 96 (40-150) U/L Albumin 4.5 (3.3-5.0) g/dL Urine 10/11/23 Range/Units 16:27 Urine Color Yellow (Yellow) Urine Appearance Clear (Clear) Urine pH 5.5 (5.0-8.5) Ur Specific [place] >= 1.030 (1.000-1.030) Urine Protein Negative (Negative) Urine Glucose (UA) Negative (Negative) Assessment and Plan Assessment and plan (1) Acute pancreatitis: Problem comment: -lipase 675; nonspecific inflammation about the abdomen. no free air. -d/w surgery. admit for pain management, fluids. trend labs, consider MRCP, likely will have lap cholecystectomy in next 1-2 days pending clinical course. Status: Acute (2) Gallstones: Problem comment: noted on u/s Status: Acute (3) Obesity, morbid, BMI 40.0-49.9: Problem comment: Weight loss during , current BMI 37.6 Status: Acute (4) Lactating mother: Problem comment: vaginal in June. HCG neg at this admission. IUD in place, presumed. May want to consider confirming if clinical course is unusual (partial perf?) Status: Acute
[2023-10-11 23:45] LABS: C Reactive Protein* 0.9 mg/dL (0.5-1.0)
[2023-10-12] VITALS (8 sets, daily range): BP systolic 107–113; BP diastolic 53–72; PULSE 85–98; RESP 16–20; TEMP 36.6–37.4; O2SAT 92–98
[2023-10-12] MEDS: ACETAMINOPHEN INJ 1,000 MG/100 ML VIAL 400 MG IVPB ×2 (00:08→05:51)
[2023-10-12] MEDS: PANTOPRAZOLE SODIUM 40 MG INJ IVP (00:09)
[2023-10-12] MEDS: KETOROLAC 30 MG/ML inj IVP ×3 (00:09→19:53)
[2023-10-12] MEDS: SODIUM CHLORIDE 0.9 % (FLUSH) 10 ML SYRINGE 5 ML IVF (00:10)
[2023-10-12] MEDS: 0.9 % SODIUM CHLORIDE 1000 ml 1,000 ML 125 ML IV ×3 (00:11→21:58)
[2023-10-12] MEDS: POTASSIUM CHLORIDE 10 MEQ/100 ML PIGGYBACK 100 MEQ IVPB ×2 (00:30→01:53)
[2023-10-12] MEDS: HYDROmorphone 0.5 mg/0.5 ml inj IVP (03:12)
[2023-10-12 06:41] LABS: Hematocrit 35.7 % (33.0-51.0); Hemoglobin* 11.6 gm/dL (12.0-16.0); Mean Corpuscular HGB Conc 33 gm/dL (32-36); Mean Corpuscular Hemoglobin 26 pg (26-34); Mean Corpuscular Volume 79 fL (80-100); Platelet Count* 296 K/uL (140-440); Red Blood Count 4.54 m/uL (4.00-5.20); Slide Review Reflex No; White Blood Count* 11.01 K/uL (4.50-11.00)
[2023-10-12 06:58] LABS: Iron* 40 ug/dL (37-170)
[2023-10-12 07:00] LABS: Albumin* 3.8 g/dL (3.3-5.0); Chloride* 106 mmol/L (96-114); Sodium* 134 mmol/L (135-149)
[2023-10-12 07:03] LABS: Alkaline Phosphatase* 85 U/L (40-150); Anion Gap 6 mEq/L (7-15); Aspartate Amino Transferase* 17 U/L (12-35); Bilirubin Total* 0.9 mg/dL (0.1-1.5); Blood Urea Nitrogen* 12 mg/dL (5-24); Carbon Dioxide* 22 mmol/L (20-32); Creatinine* 0.4 mg/dL (0.5-1.5); Est. Creatinine Clearance* 243.48; Estimated Glomerular Filt Rate 135 ml/min; Total Protein* 6.6 g/dL (6.0-8.3)
[2023-10-12 07:04] LABS: Alanine Aminotransferase* 13 U/L (4-35); Glucose* 114 mg/dL (60-115); Lipase* 220 U/L (23-300)
[2023-10-12 07:06] LABS: C Reactive Protein* 4.7 mg/dL (0.5-1.0)
[2023-10-12 07:08] LABS: Percent Iron Saturation 12 % (20-50); Total Iron Binding Capacity 344 ug/dL (265-497)
[2023-10-12] MEDS: ONDANSETRON 2 MG/ML inj 4 MG IVP (08:07)
--- NOTE | 2023-10-12 10:12 | P.GSCN_ITS ---
History of Present Illness Consult details Date Seen: 10/12/23 Consult date: 10/12/23 Narrative: The patient is a 33-year-old female who states that 3:00 a.m. yesterday morning she developed periumbilical and lower abdominal pain. States that the pain radiated across her lower abdomen. It did not radiate to her back. Was not located in her upper abdomen. She had not had nausea with this but she did vomit this morning. She had a bowel movement yesterday. She has not had any diarrhea. She feels bloated like she could pass gas but is unable to. She has never had any symptoms like this before. She has never had pain after eating. She states that her pain is constant. It is better today than it was yesterday but it is still present even with pain medication. [facility] Medical History (Updated 10/12/23 @ 10:59 by Jessa Rosas MD) Obesity, morbid, BMI 40.0-49.9 ?E66.01 - Morbid (severe) obesity due to excess calories (ICD-10) Hx of abnormal cervical Pap smear ?Z87.42 - Personal history of other diseases of the female genital tract (ICD-10) History of depression ?Z86.59 - Personal history of other mental and behavioral disorders (ICD-10) Syncope and collapse ?R55 - Syncope and collapse (ICD-10) History of vaginal delivery History of chorioamnionitis (2012) ?Z87.59 - Personal history of other complications of , childbirth and the puerperium (ICD-10) Surgical History No significant past surgical history Social History (Updated 07/18/23 @ 13:15 by Cara Basilio CNM) Narrative: SOCIAL Education: 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 - partner Lives with: partner and 2 children Pets: none Abuse: Denies past/present Special Diet: Denies Ok with a blood transfusion: yes Culture or episcopalian beliefs: denies RISK FACTORS Exercise Times/wk: walks a lot at work Depression/Anxiety: denies Seat Belt Use: Routinely Smoking: Denies past/present Alcohol/day: Denies while Caffeine: not Drug Use: Denies past/present Chicken Pox: immunization MRSA: Denies What is your current living situation?: I presently have a place to live Problems where you live: no known problems Problems where you live details: none In the past 12 months, utilities in danger of being shut off: no In past 12 months, lack of transportation kept you from medical appts, meetings, work, or getting things needed for daily living: no In the past 12 mos, have been you worried that your food would run out before you had money to buy more?: sometimes true In the past 12 mos, the food you bought just didn't last and you didn't have money to buy more?: never true Smoking Status: Never smoker Do you use any of these nicotine containing products: None How often do you have a drink containing alcohol: never How often do you have six or more drinks on one occasion: Never AUDIT-C Alcohol total score: 0 Non-prescribed substance use: denies use Caffeine: No How often does anyone, including family, friends and others, physically hurt you : never How often does anyone, including family, friends and others, insult or talk down to you: never How often does anyone, including family, friends and others, threaten you with harm: never How often does anyone, including family, friends and others, scream or curse at you: never Little interest or pleasure in doing things: several days Feeling down, depressed, or hopeless: not at all service: No Meds Home Medications and Allergies Allergies Allergy/AdvReac Type Severity Reaction Status Date / Time No Known Drug Allergies Allergy Verified 10/11/23 17:35 Exam Narrative: Exam Narrative: General appearance: Alert, cooperative, and in no distress Eyes: PERRLA, eye lids clear, and sclera white HENT Head: Normocephalic Ears: External ears normal Pulmonary: Breathing nonlabored on room air Cardiovascular Heart: Regular rate Extremities: warm and well perfused Gastrointestinal Abdominal: Protuberant. No scars. No tenderness in the epigastric region or right upper quadrant. She is tender in the lower abdomen without rebound or guarding. Musculoskeletal: Extremities: Upper: Both upper extremities have normal joint range of motion and intact strength. Lower: Both lower extremities have normal joint range of motion and intact strength. Skin: Normal skin color, texture, and turgor. Neurologic: No focal deficits Psychiatric: Alert, oriented, cooperative, normal affect. Const: Vital Signs, click to edit/add: Vital Signs - 24 hr 10/11/23 15:50 10/11/23 17:00 10/11/23 17:11 Temperature 98.2 F Pulse Rate 85 95 Pulse Rate [Pulse Oximeter] 92 Pulse Rate [Right Pulse Oximeter] Respiratory Rate 18 Blood Pressure 119/66 Blood Pressure [Ri ght Arm] Blood Pressure [Ri ght Upper Arm] 108/75 Pulse Oximetry 97 97 97 Oxygen Delivery Me thod Room Air Oxygen Flow Rate 10/11/23 17:15 10/11/23 17:30 10/11/23 18:04 Temperature Pulse Rate 93 86 82 Pulse Rate [Pulse Oximeter] Pulse Rate [Right Pulse Oximeter] Respiratory Rate Blood Pressure 111/72 Blood Pressure [Ri ght Arm] Blood Pressure [Ri ght Upper Arm] Pulse Oximetry 97 97 96 Oxygen Delivery Me thod Oxygen Flow Rate 10/11/23 18:05 10/11/23 18:15 10/11/23 18:30 Temperature Pulse Rate 82 83 84 Pulse Rate [Pulse Oximeter] Pulse Rate [Right Pulse Oximeter] Respiratory Rate Blood Pressure Blood Pressure [Ri ght Arm] Blood Pressure [Ri ght Upper Arm] Pulse Oximetry 96 96 96 Oxygen Delivery Me thod Oxygen Flow Rate 10/11/23 18:45 10/11/23 19:00 10/11/23 19:02 Temperature Pulse Rate 83 85 89 Pulse Rate [Pulse Oximeter] Pulse Rate [Right Pulse Oximeter] Respiratory Rate Blood Pressure 105/58 L Blood Pressure [Ri ght Arm] Blood Pressure [Ri ght Upper Arm] Pulse Oximetry 96 96 97 Oxygen Delivery Me thod Oxygen Flow Rate 10/11/23 19:15 10/11/23 19:30 10/11/23 19:45 Temperature Pulse Rate 91 93 92 Pulse Rate [Pulse Oximeter] Pulse Rate [Right Pulse Oximeter] Respiratory Rate Blood Pressure Blood Pressure [Ri ght Arm] Blood Pressure [Ri ght Upper Arm] Pulse Oximetry 98 98 96 Oxygen Delivery Me thod Oxygen Flow Rate 10/11/23 20:00 10/11/23 20:02 10/11/23 20:15 Temperature Pulse Rate 90 89 91 Pulse Rate [Pulse Oximeter] Pulse Rate [Right Pulse Oximeter] Respiratory Rate Blood Pressure 107/67 Blood Pressure [Ri ght Arm] Blood Pressure [Ri ght Upper Arm] Pulse Oximetry 97 96 95 Oxygen Delivery Me thod Oxygen Flow Rate 10/11/23 20:30 10/11/23 20:45 10/11/23 21:00 Temperature Pulse Rate 88 95 97 Pulse Rate [Pulse Oximeter] Pulse Rate [Right Pulse Oximeter] Respiratory Rate Blood Pressure Blood Pressure [Ri ght Arm] Blood Pressure [Ri ght Upper Arm] Pulse Oximetry 99 97 96 Oxygen Delivery Me thod Oxygen Flow Rate 10/11/23 21:02 10/11/23 21:15 10/11/23 21:30 Temperature Pulse Rate 88 90 92 Pulse Rate [Pulse Oximeter] Pulse Rate [Right Pulse Oximeter] Respiratory Rate Blood Pressure 101/57 L Blood Pressure [Ri ght Arm] Blood Pressure [Ri ght Upper Arm] Pulse Oximetry 99 98 98 Oxygen Delivery Me thod Oxygen Flow Rate 10/11/23 21:45 10/11/23 22:10 10/11/23 22:15 Temperature Pulse Rate 92 102 H 106 H Pulse Rate [Pulse Oximeter] Pulse Rate [Right Pulse Oximeter] Respiratory Rate Blood Pressure Blood Pressure [Ri ght Arm] Blood Pressure [Ri ght Upper Arm] Pulse Oximetry 100 100 100 Oxygen Delivery Me thod Oxygen Flow Rate 10/11/23 22:30 10/11/23 23:45 10/12/23 03:20 Temperature 98.1 F 98 F Pulse Rate 113 H Pulse Rate [Pulse Oximeter] Pulse Rate [Right Pulse Oximeter] 76 98 Respiratory Rate 18 Blood Pressure Blood Pressure [Ri ght Arm] 118/50 L 110/71 Blood Pressure [Ri ght Upper Arm] Pulse Oximetry 97 96 92 Oxygen Delivery Me thod Room Air Room Air Oxygen Flow Rate 2 10/12/23 03:46 10/12/23 07:00 10/12/23 07:00 Temperature Pulse Rate Pulse Rate [Pulse Oximeter] Pulse Rate [Right Pulse Oximeter] 98 Respiratory Rate 18 Blood Pressure Blood Pressure [Ri ght Arm] Blood Pressure [Ri ght Upper Arm] Pulse Oximetry 92 94 Oxygen Delivery Me thod Oxygen Flow Rate Results Labs Labs: White blood cell count in the ER was 10. This morning white blood cell count is up to 11 CRP last evening was 0.9. This morning it is up to 4.7. Lipase was 675 yesterday. 220 this morning. Imaging Abdomen CT scan report/results: report reviewed and image reviewed Additional studies: CT scan of the abdomen and pelvis IMPRESSION: 1. Edema in the central mesentery extending into the right lower quadrant, surrounding the transverse duodenum and proximal jejunum with mild wall thickening. Associated enlarged mesenteric lymph node. Edema appears separate from the pancreas however correlation with serum amylase and lipase is recommended to exclude pancreatitis. Findings could be due to underlying enteritis but overall nonspecific appearance. 2. Diffuse hepatic steatosis. Dictated by Arline Coleman MD @ 10/11/2023 7:03:14 PM Ultrasound of the abdomen: FINDINGS: Liver: The liver parenchyma is normal in echotexture. Gallbladder: An echogenic gallstone measuring 1 cm is seen near the gallbladder neck. The gallbladder wall is normal in appearance. No pericholecystic fluid is present. Common bile duct: 3 mm. No intrahepatic biliary ductal dilatation seen. Vascular: Proximal abdominal aorta and IVC are not demonstrated. IMPRESSION: 1. An echogenic gallstone measuring 1 cm is seen near the gallbladder neck. Dictated by Franc Rose MD @ 10/11/2023 9:29:08 PM Progress Note:A&P Assessment and plan (1) Acute pancreatitis: Status: Acute (2) Gallstones: Status: Acute (3) Obesity, morbid, BMI 40.0-49.9: Status: Acute (4) Lactating mother: Status: Acute (5) Duodenitis: Status: Acute Plan The patient is a 33-year-old female with abdominal pain and findings of mesenteric and duodenal inflammation with mildly elevated lipase and in the setting of cholelithiasis but without biliary dilatation on imaging. I reviewed radiology images myself and with the radiologist. In the absence of biliary dilatation and in the pattern of inflammation seen on imaging, gallstone pancreatitis now seems less likely. However because this is a come in diagnosis, I recommend MRCP for further characterization, particularly since white blood cell count CRP is elevated today. This could delineate if there are any lesions within the pancreas, stones in the common bile duct or the cholecystitis may be present. This is planned for this afternoon. Certainly duodenitis and enteritis could cause pain in the distribution that she is having. This could be secondary to a virus or even H pylori infection. Recommend starting a PPI and checking for H pylori - stool or immunoglobulin blood test. Continue NPO status for now until abdominal pain has subsided.
--- NOTE | 2023-10-12 10:41 | PM.IMPN1 ---
Progress Note: A&P Assessment and plan (1) Acute pancreatitis: Problem details: - lipase 675 on admission and trending downward; nonspecific inflammation around duodenum without free air - Dr. Rosas of General surgery following - MRCP, H. Pylori on 10/11 - GC/Chlamydia ordered to evaluate for atypical sources of symptoms (ie [id number]) - on PPI - likely will have lap cholecystectomy in next 1-2 days pending clinical course Status: Acute (2) Gallstones: Problem details: - noted on u/s Status: Acute (3) Lactating mother: Problem details: - in June 2023, has pump available and baby visiting to breastfeed - IUD placed , will evaluate with ultrasound given migration of pain to pelvic region today Status: Acute Plan - per above - clear liquid diet at this time, NPO for MRCP, advance diet Subjective Date Seen: 10/12/23 Interval history: Jenifer was admitted to the hospital with last night for abdominal pain; initially epigastric. ER imaging c/w duodenitis. This morning, she notes that her pain is primarily located in the pelvic region. No dysuria. She feels a little hungry this morning and would like to try clears. Dr. Rosas is following from general surgery; MRCP and pelvic ultrasound have been ordered to better evaluate symptoms. H. pylori, GC/Chlamydia pending. Exam Narrative: Exam Narrative: GEN: Alert and oriented, nontoxic HEENT: EOMIs bilaterally, no scleral icterus CV: RRR, No concerning murmurs R: LCTA bilaterally, no tachypnea, no wheezing Ab: soft, nontender, negative Parker's sign. Mild discomfort with palpation, no rebound or guarding Ext: wwp, no concerning edema Skin: No concerning skin lesions or rashes on exposed skin Neuro: Nonfocal Psych: Appropriate Const: Vital Signs, click to edit/add: Vital Signs - 24 hr 10/11/23 15:50 10/11/23 17:00 10/11/23 17:11 Temperature 98.2 F Pulse Rate 85 95 Pulse Rate [Pulse Oximeter] 92 Pulse Rate [Right Pulse Oximeter] Respiratory Rate 18 Blood Pressure 119/66 Blood Pressure [Ri ght Arm] Blood Pressure [Ri ght Upper Arm] 108/75 Pulse Oximetry 97 97 97 Oxygen Delivery Me thod Room Air Oxygen Flow Rate 10/11/23 17:15 10/11/23 17:30 10/11/23 18:04 Temperature Pulse Rate 93 86 82 Pulse Rate [Pulse Oximeter] Pulse Rate [Right Pulse Oximeter] Respiratory Rate Blood Pressure 111/72 Blood Pressure [Ri ght Arm] Blood Pressure [Ri ght Upper Arm] Pulse Oximetry 97 97 96 Oxygen Delivery Me thod Oxygen Flow Rate 10/11/23 18:05 10/11/23 18:15 10/11/23 18:30 Temperature Pulse Rate 82 83 84 Pulse Rate [Pulse Oximeter] Pulse Rate [Right Pulse Oximeter] Respiratory Rate Blood Pressure Blood Pressure [Ri ght Arm] Blood Pressure [Ri ght Upper Arm] Pulse Oximetry 96 96 96 Oxygen Delivery Me thod Oxygen Flow Rate 10/11/23 18:45 10/11/23 19:00 10/11/23 19:02 Temperature Pulse Rate 83 85 89 Pulse Rate [Pulse Oximeter] Pulse Rate [Right Pulse Oximeter] Respiratory Rate Blood Pressure 105/58 L Blood Pressure [Ri ght Arm] Blood Pressure [Ri ght Upper Arm] Pulse Oximetry 96 96 97 Oxygen Delivery Me thod Oxygen Flow Rate 10/11/23 19:15 10/11/23 19:30 10/11/23 19:45 Temperature Pulse Rate 91 93 92 Pulse Rate [Pulse Oximeter] Pulse Rate [Right Pulse Oximeter] Respiratory Rate Blood Pressure Blood Pressure [Ri ght Arm] Blood Pressure [Ri ght Upper Arm] Pulse Oximetry 98 98 96 Oxygen Delivery Me thod Oxygen Flow Rate 10/11/23 20:00 10/11/23 20:02 10/11/23 20:15 Temperature Pulse Rate 90 89 91 Pulse Rate [Pulse Oximeter] Pulse Rate [Right Pulse Oximeter] Respiratory Rate Blood Pressure 107/67 Blood Pressure [Ri ght Arm] Blood Pressure [Ri ght Upper Arm] Pulse Oximetry 97 96 95 Oxygen Delivery Me thod Oxygen Flow Rate 10/11/23 20:30 10/11/23 20:45 10/11/23 21:00 Temperature Pulse Rate 88 95 97 Pulse Rate [Pulse Oximeter] Pulse Rate [Right Pulse Oximeter] Respiratory Rate Blood Pressure Blood Pressure [Ri ght Arm] Blood Pressure [Ri ght Upper Arm] Pulse Oximetry 99 97 96 Oxygen Delivery Me thod Oxygen Flow Rate 10/11/23 21:02 10/11/23 21:15 10/11/23 21:30 Temperature Pulse Rate 88 90 92 Pulse Rate [Pulse Oximeter] Pulse Rate [Right Pulse Oximeter] Respiratory Rate Blood Pressure 101/57 L Blood Pressure [Ri ght Arm] Blood Pressure [Ri ght Upper Arm] Pulse Oximetry 99 98 98 Oxygen Delivery Me thod Oxygen Flow Rate 10/11/23 21:45 10/11/23 22:10 10/11/23 22:15 Temperature Pulse Rate 92 102 H 106 H Pulse Rate [Pulse Oximeter] Pulse Rate [Right Pulse Oximeter] Respiratory Rate Blood Pressure Blood Pressure [Ri ght Arm] Blood Pressure [Ri ght Upper Arm] Pulse Oximetry 100 100 100 Oxygen Delivery Me thod Oxygen Flow Rate 10/11/23 22:30 10/11/23 23:45 10/12/23 03:20 Temperature 98.1 F 98 F Pulse Rate 113 H Pulse Rate [Pulse Oximeter] Pulse Rate [Right Pulse Oximeter] 76 98 Respiratory Rate 18 Blood Pressure Blood Pressure [Ri ght Arm] 118/50 L 110/71 Blood Pressure [Ri ght Upper Arm] Pulse Oximetry 97 96 92 Oxygen Delivery Me thod Room Air Room Air Oxygen Flow Rate 2 10/12/23 03:46 10/12/23 07:00 10/12/23 07:00 Temperature Pulse Rate Pulse Rate [Pulse Oximeter] Pulse Rate [Right Pulse Oximeter] 98 Respiratory Rate 18 Blood Pressure Blood Pressure [Ri ght Arm] Blood Pressure [Ri ght Upper Arm] Pulse Oximetry 92 94 Oxygen Delivery Me thod Oxygen Flow Rate Labs Labs: Laboratory Results - last 24 hr 10/11/23 10/11/23 10/11/23 16:27 16:57 23:18 WBC 10.34 RBC 4.99 Hgb 12.6 Hct 38.8 MCV 78 L MCH 25 L MCHC 33 RDW Coeff of [place] 14.2 Plt Count 342 Neut % (Auto) 70.7 Lymph % (Auto) 21.7 Terry % (Auto) 6.7 Eos % (Auto) 0.4 Baso % (Auto) 0.3 Neut # (Auto) 7.32 H Lymph # (Auto) 2.24 Terry # (Auto) 0.70 Eos # (Auto) 0.04 Baso # (Auto) 0.03 Abs Immat Gran (auto) 0.02 Imm/Tot Granulo (auto) 0.2 Sodium 139 Potassium 3.5 L Chloride 107 Carbon Dioxide 23 Anion Gap 9 BUN 13 Creatinine 0.5 Estimated Creat Clear 208.20 Estimated GFR 128 Glucose 102 Calcium 8.6 Iron TIBC % Saturation Total Bilirubin 0.4 AST 21 ALT 16 Alkaline Phosphatase 96 C-Reactive Protein 0.9 Total Protein 7.5 Albumin 4.5 Lipase 675 H Urine Color Yellow Urine Appearance Clear Urine pH 5.5 Ur Specific [place] >= 1.030 Urine Protein Negative Urine Glucose (UA) Negative Urine Ketones Negative Urine Blood Negative Urine Nitrite Negative Urine Bilirubin Negative Urine Urobilinogen 0.2 Ur Leukocyte Esterase Negative Urine RBC 0-2 Urine WBC 2-5 Ur Squamous Epith Cells Moderate A Urine Bacteria Few A Urine HCG, Qual Negative Lab Acknowledgement Test Added 10/12/23 06:13 WBC 11.01 H RBC 4.54 Hgb 11.6 L Hct 35.7 MCV 79 L MCH 26 MCHC 33 RDW Coeff of [place] Plt Count 296 Neut % (Auto) Lymph % (Auto) Terry % (Auto) Eos % (Auto) Baso % (Auto) Neut # (Auto) Lymph # (Auto) Terry # (Auto) Eos # (Auto) Baso # (Auto) Abs Immat Gran (auto) Imm/Tot Granulo (auto) Sodium 134 L Potassium 4.0 Chloride 106 Carbon Dioxide 22 Anion Gap 6 L BUN 12 Creatinine 0.4 L Estimated Creat Clear 243.48 Estimated GFR 135 Glucose 114 Calcium 8.0 L Iron 40 TIBC 344 % Saturation 12 L Total Bilirubin 0.9 AST 17 ALT 13 Alkaline Phosphatase 85 C-Reactive Protein 4.7 H Total Protein 6.6 Albumin 3.8 Lipase 220 Urine Color Urine Appearance Urine pH Ur Specific [place] Urine Protein Urine Glucose (UA) Urine Ketones Urine Blood Urine Nitrite Urine Bilirubin Urine Urobilinogen Ur Leukocyte Esterase Urine RBC Urine WBC Ur Squamous Epith Cells Urine Bacteria Urine HCG, Qual Lab Acknowledgement
--- NOTE | 2023-10-12 16:30 | CRLHL7_ITS ---
For Patients: As a result of the Century Cures Act, medical imaging exams and procedure reports are released immediately into your electronic medical record. You may view this report before your referring provider. If you have questions, please contact your health care provider. INDICATION: Pancreatitis TECHNIQUE: Noncontrast abdominal MRI with T1 and T2 weighted imaging as well as heavily T2 weighted MRCP. FINDINGS: Liver: Mild fatty infiltration. A tiny cyst is present in the lateral left hepatic segment II. Series 7, image 11. Pancreas: Peripancreatic phlegmon with edema on the T2 weighted images. No ductal dilatation. No pancreatic mass. No pancreatic divisum. Biliary tree: Minimal low-level sludge and a few small stones near the neck of the gallbladder. No definite dilatation of the intra or extrahepatic ducts. No intraductal stone identified. Miscellaneous: Atelectasis in the lung bases. No ascites. No adenopathy or hydronephrosis. Adrenal glands and pancreas are unremarkable. COMPARISON: CT scan abdomen October 11, 2023. IMPRESSION: 1. Peripancreatic phlegmon compatible with pancreatitis. No signs of a pseudocyst. 2. No biliary dilatation. No definite filling defect identified in the extrahepatic bile duct. Small gallstones are present. 3. Bilateral basilar atelectasis. Dictated by Carlo Osorio MD @ 10/12/2023 2:04:25 PM (Electronically Signed)
--- NOTE | 2023-10-12 17:00 | CRLHL7_ITS ---
For Patients: As a result of the Century Cures Act, medical imaging exams and procedure reports are released immediately into your electronic medical record. You may view this report before your referring provider. If you have questions, please contact your health care provider. INDICATION: Pelvic pain, check IUD. COMPARISON: None. TECHNIQUE: 2D mota scale and color Doppler images were acquired of the pelvis using a transabdominal and transvaginal approach. FINDINGS: Sonographic images demonstrate a normal size and smooth outer contour of the uterus. The uterus is anteverted in position. The uterus measures 7.6 cm in length by 3.0 cm in AP diameter by 5.9 cm in transverse dimension. The myometrium has uniform echotexture. The endometrial lining measures 3 mm in composite thickness. IUD appears appropriately positioned. The right ovary measures 3.6 x 2.6 x 3.2 cm and the left ovary measures 3.5 x 2.4 x 2.6 cm. The ovaries demonstrate normal arterial and venous blood flow on color Doppler analysis. No free fluid in the pelvic cul-de-sac. IMPRESSION: 1. IUD appears appropriately positioned. 2. Exam otherwise unremarkable. No evidence of ovarian torsion. Dictated by Arline Coleman MD @ 10/12/2023 6:13:06 PM (Electronically Signed)
--- NOTE | 2023-10-12 19:47 | PC.NURSE ---
End of Shift Note: At the beginning of my shift patient did have a 20cc emesis of yellow bile. She receive a dose of toradol for pain and it has helped her a little bit she is tolerating clears liquids in small amounts. Will go NPO at midnight.
[2023-10-12] MEDS: OMEPRAZOLE 20 MG CAPSULE DR PO (20:36)
[2023-10-12 22:15] LABS: Chlamydia DNA Amplified* NOT DETECTED (No Detected); GC DNA Amplified* NOT DETECTED (No Detected)
[2023-10-13] VITALS (20 sets, daily range): BP systolic 96–142; BP diastolic 44–108; PULSE 68–95; RESP 14–18; TEMP 36.1–36.8; O2SAT 88–99
[2023-10-13] MEDS: 0.9 % SODIUM CHLORIDE 1000 ml 1,000 ML 125 ML IV (05:58)
--- NOTE | 2023-10-13 06:25 | PC.NURSE ---
End of shift [id number]: A&O pleasant and cooperative. VSS. Reporting 2-5/10 pain in abdomen. See eMAR for interventions. Denies n/v. NPO since 0000. bowel sounds active. at bedside overnight. Pt is pumping and?reports that she does not want to save her milk at this time. Using call light appropriately.
[2023-10-13 06:47] LABS: Basophils Absolute Auto 0.01 K/uL (0.00-0.30); Basophils Percent Auto 0.1 % (0.0-3.0); Eosinophils Absolute Auto 0.13 K/uL (0.00-0.50); Eosinophils Percent Auto 1.7 % (0.0-7.0); Hematocrit 32.4 % (33.0-51.0); Hemoglobin* 10.4 gm/dL (12.0-16.0); Immature Granulocytes Abs Auto 0.05 K/uL (0.00-0.30); Immature Granulocytes Pct Auto 0.7 %; Lymphocytes Absolute Auto 2.23 K/uL (0.90-2.90); Lymphocytes Percent Auto 29.9 % (20-44); Mean Corpuscular HGB Conc 32 gm/dL (32-36); Mean Corpuscular Hemoglobin 26 pg (26-34); Mean Corpuscular Volume 80 fL (80-100); Monocytes Percent Auto 8.2 % (0.0-11.0); Neutrophils Absolute Auto 4.43 K/uL (1.7-7.0); Neutrophils Percent Auto 59.4 % (42.0-72.0); Platelet Count* 258 K/uL (140-440); RDW Coefficient of Variation % 14.6 % (11.5-15.5); Red Blood Count 4.07 m/uL (4.00-5.20); White Blood Count* 7.46 K/uL (4.50-11.00)
--- NOTE | 2023-10-13 06:49 | PC.NURSE ---
End of shift [id number]: A&O pleasant and cooperative. VSS. Reporting 2-5/10 pain in abdomen. See eMAR for interventions. Denies n/v. NPO since 0000. at bedside overnight. Pt is pumping and reports that she does not want to save her milk at this time. Using call light appropriately.
[2023-10-13 06:53] LABS: Slide Review Reflex No
[2023-10-13 07:21] LABS: Albumin* 3.3 g/dL (3.3-5.0)
[2023-10-13 07:22] LABS: Chloride* 111 mmol/L (96-114); Potassium* 3.4 mmol/L (3.6-5.1); Sodium* 139 mmol/L (135-149)
[2023-10-13 07:24] LABS: Anion Gap 5 mEq/L (7-15); Aspartate Amino Transferase* 18 U/L (12-35); Bilirubin Total* 0.5 mg/dL (0.1-1.5); Carbon Dioxide* 23 mmol/L (20-32); Creatinine* 0.5 mg/dL (0.5-1.5); Est. Creatinine Clearance* 218.61; Estimated Glomerular Filt Rate 128 ml/min
[2023-10-13 07:25] LABS: Alanine Aminotransferase* 12 U/L (4-35); Alkaline Phosphatase* 73 U/L (40-150); Blood Urea Nitrogen* 7 mg/dL (5-24); Glucose* 106 mg/dL (60-115); Total Protein* 6.1 g/dL (6.0-8.3)
[2023-10-13 07:26] LABS: Magnesium* 2.2 mg/dL (1.5-2.6)
[2023-10-13] MEDS: POTASSIUM CHLORIDE 10 MEQ/100 ML PIGGYBACK 100 MEQ IVPB ×2 (09:54→13:14)
--- NOTE | 2023-10-13 10:02 | PM.GSPN ---
Subjective Subjective Date Seen: 10/13/23 Interval history: eJnifer feels better today. Her pain is basically gone. No bowel movement yet. MRCP yesterday did not show choledocholithiasis. It did show pancreatitis with gallstones within the gallbladder. Exam Narrative: Exam Narrative: General appearance: Alert, cooperative, and in no distress Eyes: PERRLA, eye lids clear, and sclera white HENT Head: Normocephalic Ears: External ears normal Pulmonary: Breathing nonlabored on room air Cardiovascular Heart: Regular rate Extremities: warm and well perfused Gastrointestinal Abdominal: Protuberant. Nontender in the upper abdomen. Minimally tender lower abdomen Musculoskeletal: Extremities: Upper: Both upper extremities have normal joint range of motion and intact strength. Lower: Both lower extremities have normal joint range of motion and intact strength. Skin: Normal skin color, texture, and turgor. Neurologic: No focal deficits Psychiatric: Alert, oriented, cooperative, normal affect. Const: Vital Signs, click to edit/add: Vital Signs - 24 hr 10/12/23 11:00 10/12/23 15:00 10/12/23 15:00 Temperature 98.6 F Pulse Rate [Right Pulse Oximeter] 94 94 Respiratory Rate 20 20 Blood Pressure [Ri ght Arm] 107/64 Pulse Oximetry 98 96 Oxygen Delivery Me thod Room Air 10/12/23 15:00 10/12/23 19:46 10/12/23 22:39 Temperature 98.2 F 99.3 F 98.3 F Pulse Rate [Right Pulse Oximeter] 90 95 89 Respiratory Rate 18 16 16 Blood Pressure [Ri ght Arm] 113/53 L 110/72 107/60 Pulse Oximetry 97 96 96 Oxygen Delivery Me thod Room Air Room Air 10/12/23 22:41 10/13/23 04:29 10/13/23 08:42 Temperature 98.3 F Pulse Rate [Right Pulse Oximeter] 91 Respiratory Rate 14 Blood Pressure [Ri ght Arm] 112/61 Pulse Oximetry 96 95 94 Oxygen Delivery Me thod Room Air 10/13/23 08:42 Temperature 98.3 F Pulse Rate [Right Pulse Oximeter] 80 Respiratory Rate 16 Blood Pressure [Ri ght Arm] 101/60 Pulse Oximetry 94 Oxygen Delivery Me thod Room Air Labs/Imaging Labs Labs: White blood cell count is normal at 7.4 Lipase yesterday was normal did not get rechecked today. Imaging Imaging: Pelvic ultrasound done yesterday: IMPRESSION: 1. IUD appears appropriately positioned. 2. Exam otherwise unremarkable. No evidence of ovarian torsion. Dictated by Arline Coleman MD @ 10/12/2023 6:13:06 PM MRCP done yesterday: IMPRESSION: 1. Peripancreatic phlegmon compatible with pancreatitis. No signs of a pseudocyst. 2. No biliary dilatation. No definite filling defect identified in the extrahepatic bile duct. Small gallstones are present. 3. Bilateral basilar atelectasis. Dictated by Carlo Osorio MD @ 10/12/2023 2:04:25 PM Progress Note:A&P Assessment and plan (1) Acute pancreatitis: Status: Acute (2) Duodenitis: Status: Acute (3) Gallstones: Status: Acute (4) Obesity, morbid, BMI 40.0-49.9: Status: Acute (5) Lactating mother: Status: Acute Plan Jenifer is a 33-year-old female who presented with abdominal pain in her mid to lower abdomen and duodenitis versus pancreatitis. This was in the setting of gallstones. She did not have biliary dilatation seen on imaging. MRCP more convincing for pancreatitis. Most likely etiology is secondary to gallstones. She is markedly improved today with minimal pain. Labs have improved. I explained to her that there are various causes for pancreatitis, however gallstone pancreatitis is a common etiology. Removing the gallbladder will prevent this from occurring in the future. Since her symptoms have resolved and her labs have improved I think it is reasonable to proceed with this today. We discussed gallbladder anatomy and pathology as well as risks, benefits and recovery from surgery. She agreed to proceed and we will plan on surgery today.
[2023-10-13] MEDS: CEFAZOLIN 1 GM inj 3 GM IVP (11:06)
--- NOTE | 2023-10-13 11:38 | W.ANESCHARGE ---
Anesthesia Charges Start Date/Time Anesthesia Start Date: 10/13/23 Anesthesia Start Time: 10:47 Stop Date/Time Anesthesia Stop Date: 10/13/23 Anesthesia Stop Time: 12:10
[2023-10-13] MEDS: BUPIVACAINE 0.25% 30 ML INJECTION (11:42)
--- NOTE | 2023-10-13 12:11 | W.ANESCHARGE ---
Anesthesia Charges Start Date/Time Anesthesia Start Date: 10/13/23 Anesthesia Start Time: 10:47 Stop Date/Time Anesthesia Stop Date: 10/13/23 Anesthesia Stop Time: 12:10
--- NOTE | 2023-10-13 12:15 | PM.GSPRC ---
Operative Note Date of procedure: 10/13/23 Pre-op diagnosis: 1. Pancreatitis 2. Gallstones Post-op diagnosis: Same Type of Procedure: Laparoscopic cholecystectomy Indications: The patient is a 33-year-old female who presented to the emergency department with mid to lower abdominal pain. CT scan was found to have thickening of the duodenum and mesentery. This did appear to be slightly separate from the pancreas. Lipase was mildly elevated. Paste She is admitted to the hospital and the following day lipase was normal. She was still having pain which was more in her lower abdomen so MRCP was obtained to ensure no common bile duct stone and better evaluate the pancreas as well as ultrasound of the pelvis to rule out gynecologic etiology for discomfort. Ultrasound was normal. This showed pancreatitis with gallstones and no choledocholithiasis. On hospital day 2, she had improvement in her laboratory values in pain, therefore cholecystectomy was offered to prevent future episodes of what is presumably gallstone pancreatitis. Procedure Description: After discussing the risks and benefits of the procedure, the patient signed informed consent.? The operative site was marked and the patient was brought to the operating room and placed on the operating table in supine position.? Care was taken to pad the patient's pressure points.?? The patient was then intubated by anesthesia.?? The operative site was then prepped and draped in the usual sterile fashion.? A time-out was then performed. Entrance to the abdomen was gained via a 5 mm Visiport in the left upper quadrant. The abdomen was insufflated and briefly surveyed for signs of injury. There was none. A 10 mm umbilical port was placed as well as 2 working ports along the right costal margin, all under direct vision. The patient was then placed in reverse Trendelenburg position with the right side up. The gallbladder fundus was grasped and retracted cephalad. The gallbladder appeared relatively normal. The infundibulum was grasped. A combination of hook cautery and blunt dissection was used to carefully dissect out the cystic duct and artery until they could clearly be seen entering the gallbladder without any intervening structures. The gallbladder was dissected off the cystic plate to achieve the critical view. Once this was achieved the cystic duct and artery were each clipped with 2 clips proximally and 1 clip distally and transected with the scissors. The gallbladder was then taken off of the liver bed and removed from the abdomen using an Endo-Catch bag. The gallbladder bed was surveyed for hemostasis which appeared adequate. A small amount of bile which had spilled was suctioned from the abdomen. The umbilical port fascia was closed with 0 Vicryl. The remaining ports were then removed and the abdomen desufflated. The skin was closed with absorbable subcuticular suture. Instrument sponge and needle counts were correct at the end of the case. The patient was then woken and transferred to the PACU in stable condition. The patient tolerated the procedure well. Findings: No significant findings Anesthesia: GETA Surgeon: Jessa Rosas MD Estimated blood loss (mL): 5 Specimen: Gallbladder Condition: stable Disposition: PACU
--- NOTE | 2023-10-13 12:20 | PM.DS1 ---
DS: Providers Provider Date Seen: 10/13/23 Date of admission: 10/13/23 08:58 Primary care physician: Not a Local Provider Admitting Clinician: Whitley Whitfield MD Attending Physician on discharge: Whitley Whitfield MD Date of Discharge: 10/13/23 DS: Diagnosis Discharge Diagnosis (1) Duodenitis: Status: Acute (2) Acute pancreatitis: Status: Acute Problem details: - lipase 675 on admission and trending downward; nonspecific inflammation around duodenum without free air - Dr. Rosas of General surgery following - MRCP, H. Pylori on 10/11 - GC/Chlamydia ordered to evaluate for atypical sources of symptoms (ie [id number]) - on PPI - likely will have lap cholecystectomy in next 1-2 days pending clinical course (3) Gallstones: Status: Acute Problem details: - noted on u/s (4) Obesity, morbid, BMI 40.0-49.9: Status: Acute Problem details: Weight loss during , current BMI 37.6 (5) Lactating mother: Status: Acute Problem details: - in June 2023, has pump available and baby visiting to breastfeed - IUD placed , will evaluate with ultrasound given migration of pain to pelvic region today (6) S/P laparoscopic cholecystectomy: Status: Acute DS: Summary Hospital Course Hospital Course: The patient presented to the emergency room with mid and lower abdominal pain. CT scan showed duodenal and jejunal thickening with inflammation of the mesentery which was situated near the pancreas. Lipase was mildly elevated. Further workup showed gallstones but no biliary dilatation. She was admitted with presumed gallstone pancreatitis. Following day her white blood cell count was elevated the lipase had improved. MRCP was obtained to confirm the diagnosis of pancreatitis and ensure no common bile duct stones. She also underwent workup to rule out gynecologic etiology given that her pain was mainly in her mid to lower abdomen. On hospital day 3, she underwent laparoscopic cholecystectomy for presumed diagnosis of gallstone pancreatitis. This was uneventful. She was deemed safe for discharge home later that evening. Time Spent with Patient Time attestation: Total time spent providing and/or coordinating discharge services: Exam Narrative: Exam Narrative: General appearance: Alert, cooperative, and in no distress Eyes: PERRLA, eye lids clear, and sclera white HENT Head: Normocephalic Ears: External ears normal Pulmonary: Breathing nonlabored on room air Cardiovascular Heart: Regular rate Extremities: warm and well perfused Gastrointestinal Abdominal: Incisions clean and dry. Musculoskeletal: Extremities: Upper: Both upper extremities have normal joint range of motion and intact strength. Lower: Both lower extremities have normal joint range of motion and intact strength. Skin: Normal skin color, texture, and turgor. Neurologic: No focal deficits Psychiatric: Alert, oriented, cooperative, normal affect. Const: Vital Signs, click to edit/add: Vital Signs - 24 hr 10/12/23 15:00 10/12/23 15:00 10/12/23 15:00 Temperature 98.2 F Pulse Rate Pulse Rate [Right Pulse Oximeter] 94 90 Respiratory Rate 20 18 Blood Pressure Blood Pressure [Ri ght Arm] 113/53 L Pulse Oximetry 96 97 Oxygen Delivery Me thod Room Air Oxygen Flow Rate 10/12/23 19:46 10/12/23 22:39 10/12/23 22:41 Temperature 99.3 F 98.3 F Pulse Rate Pulse Rate [Right Pulse Oximeter] 95 89 Respiratory Rate 16 16 Blood Pressure Blood Pressure [Ri ght Arm] 110/72 107/60 Pulse Oximetry 96 96 96 Oxygen Delivery Me thod Room Air Oxygen Flow Rate 10/13/23 04:29 10/13/23 08:42 10/13/23 08:42 Temperature 98.3 F 98.3 F Pulse Rate Pulse Rate [Right Pulse Oximeter] 91 80 Respiratory Rate 14 16 Blood Pressure Blood Pressure [Ri ght Arm] 112/61 101/60 Pulse Oximetry 95 94 94 Oxygen Delivery Me thod Room Air Room Air Oxygen Flow Rate 10/13/23 12:05 10/13/23 12:10 10/13/23 12:15 Temperature 98.3 F Pulse Rate 88 78 887 H Pulse Rate [Right Pulse Oximeter] Respiratory Rate 16 16 18 Blood Pressure 101/44 L 96/52 L 101/56 L Blood Pressure [Ri ght Arm] Pulse Oximetry 88 97 88 Oxygen Delivery Me thod Nasal Cannula Nasal Cannula Nasal Cannula Oxygen Flow Rate 3 3 3 DS: Data Data Completed and Pending Completed studies during hospitalization: Procedures Delivery of Products of Conception, External Approach (07/02/23) Introduction of Other Hormone into Peripheral Vein, Percutaneous Approach (07/02/23) Labs on day of discharge: Labs from last 24 hours 10/13/23 10/12/23 06:25 20:15 WBC 7.46 RBC 4.07 Hgb 10.4 L Hct 32.4 L MCV 80 MCH 26 MCHC 32 RDW Coeff of Uzma 14.6 Plt Count 258 Neut % (Auto) 59.4 Lymph % (Auto) 29.9 [place] % (Auto) 8.2 Eos % (Auto) 1.7 Baso % (Auto) 0.1 Neut # (Auto) 4.43 Lymph # (Auto) 2.23 [place] # (Auto) 0.60 Eos # (Auto) 0.13 Baso # (Auto) 0.01 Abs Immat Gran (auto) 0.05 Imm/Tot Granulo (auto) 0.7 Sodium 139 Potassium 3.4 L Chloride 111 Carbon Dioxide 23 Anion Gap 5 L BUN 7 Creatinine 0.5 Estimated Creat Clear 218.61 Estimated GFR 128 Glucose 106 Calcium 8.0 L Magnesium 2.2 Total Bilirubin 0.5 AST 18 ALT 12 Alkaline Phosphatase 73 Total Protein 6.1 Albumin 3.3 C.trachomatis Ampl DNA NOT DETECTED N.gonorrhoeae Ampl DNA NOT DETECTED Discharge Plan Discharge Disposition: Home, Self-Care Date of Admission: 10/13/23 08:58 Attending Provider on Discharge: Jessa Rosas Primary Care Provider: Provider,Not a Local Condition: Improved Anticipated Discharge Date/Time: 10/13/23 15:00 Discharge Medications: New hydrocodone-acetaminophen 5-325 mg tablet 1 - 2 tab PO Q6H PRN (Reason: Pain) Qty: 20 0RF Rx Instructions: 1 - 2 tab orally as needed Discharge Orders: Discharge Order (Routine); Ordered 10/13/23 Ordered By: Jessa Rosas Patient Education: General Anesthesia (DC), Laparoscopic Cholecystectomy (DC), Post-Operative Instructions: Laparoscopic Cholecystectomy Additional Instructions: Wound care: Your sutures are under the skin and will dissolve over time. Leave steri strips (white bandages) over incisions until they fall off (or remove after 7 days). OK to shower tomorrow but avoid bathing, soaking or swimming for 2 weeks. Pat the incisions dry. No need to wash or scrub the area. Apply ice to the area as needed for swelling. It is also OK to use a heating pad if this provides more comfort to you. Pain control: You were prescribed a pain medication. This medication contains acetaminophen (Tylenol). If you are taking your prescribed pain pills 4 times daily, do not take additional acetaminophen. As your pain improves, you can try taking acetaminophen instead of the prescribed pain pill. It is ok to take Ibuprofen or Naproxen (per directions on packaging). This medication helps with inflammation and swelling. Take an mosf-etq-euyxaat stool softener while you are taking prescribed pain medications to help alleviate constipation. I recommend Senna and/or Colace. Take as directed on package. If you have not had a bowel movement in 3 days, try taking Miralax as directed on the package. All of these are available over the counter. Follow-up Follow up with Dr. Rosas in 2-3 weeks Please call if you are experiencing severe pain, nausea, vomiting, difficulty urinating, fever or have not had bowel movement in 4 days after surgery. Activity Level: No strenuous activity Activity Detail: No lifting more than 20 lb for 2 weeks. Discharge Diet: Regular Follow Up Appointments: Jessa Rosas MD [Staff Physician] - Provider,Not a Local [Primary Care Provider] - Forms: [facility] Info Instructions
[2023-10-13] MEDS: LACTATED RINGERS 1000 ML 1,000 ML 125 ML IV (13:13)
[2023-10-13] MEDS: HYDROmorphone 0.5 mg/0.5 ml inj IVP ×2 (13:19→18:04)
--- NOTE | 2023-10-13 13:55 | PM.DS1 ---
DS: Providers Provider Time Seen by Provider: 09:30 Date Seen: 10/13/23 Date of admission: 10/13/23 08:58 Primary care physician: Not a Local Provider Admitting Clinician: Whitley Whitfield MD Attending Physician on discharge: Mari Ocampo MD Date of Discharge: 10/13/23 DS: Diagnosis Discharge Diagnosis (1) Acute pancreatitis: Status: Acute Problem details: - lipase 675 on admission and trending downward; nonspecific inflammation around duodenum without free air - MRCP, H. Pylori on 10/11 - GC/Chlamydia negative - Improved, lap shahid done 10/13/23 () (2) Gallstones: Status: Acute Problem details: - noted on u/s - 10/13/23 s/p lap shahid (3) Obesity, morbid, BMI 40.0-49.9: Status: Acute Problem details: Weight loss during , current BMI 37.6 (4) Lactating mother: Status: Acute Problem details: - in June 2023, has pump available and baby visiting to breastfeed - IUD placed , TVUS unremarkable (5) S/P laparoscopic cholecystectomy: Status: Acute DS: Summary Hospital Course Hospital Course: The patient presented to the emergency room with mid and lower abdominal pain. CT scan showed duodenal and jejunal thickening with inflammation of the mesentery which was situated near the pancreas. Lipase was mildly elevated. Further workup showed gallstones but no biliary dilatation. She was admitted with presumed gallstone pancreatitis. Following day her white blood cell count was elevated the lipase had improved. MRCP was obtained to confirm the diagnosis of pancreatitis and ensure no common bile duct stones. She also underwent workup to rule out gynecologic etiology given that her pain was mainly in her mid to lower abdomen. On hospital day 3, she underwent laparoscopic cholecystectomy for presumed diagnosis of gallstone pancreatitis. This was uneventful. She was deemed safe for discharge home later that evening. Time Spent with Patient Time attestation: Total time spent providing and/or coordinating discharge services: Exam Narrative: Exam Narrative: General: No acute distress. Awake, alert, oriented x3. No pallor. No jaundice. Oropharynx: Clear. Mucous membranes moist. Cardiovascular: Regular rate and rhythm. No murmurs, gallops, or rubs. Respiratory: Clear to auscultation bilaterally. No wheezes or crackles. Abdomen: Bowel sounds present. Soft, nondistended, nontender. Extremities: No pedal edema. Const: Vital Signs, click to edit/add: Vital Signs - 24 hr 10/12/23 15:00 10/12/23 15:00 10/12/23 15:00 Temperature 98.2 F Pulse Rate Pulse Rate [Right Pulse Oximeter] 94 90 Respiratory Rate 20 18 Blood Pressure Blood Pressure [Ri ght Arm] 113/53 L Pulse Oximetry 96 97 Oxygen Delivery Me thod Room Air Oxygen Flow Rate 10/12/23 19:46 10/12/23 22:39 10/12/23 22:41 Temperature 99.3 F 98.3 F Pulse Rate Pulse Rate [Right Pulse Oximeter] 95 89 Respiratory Rate 16 16 Blood Pressure Blood Pressure [Ri ght Arm] 110/72 107/60 Pulse Oximetry 96 96 96 Oxygen Delivery Me thod Room Air Oxygen Flow Rate 10/13/23 04:29 10/13/23 08:42 10/13/23 08:42 Temperature 98.3 F 98.3 F Pulse Rate Pulse Rate [Right Pulse Oximeter] 91 80 Respiratory Rate 14 16 Blood Pressure Blood Pressure [Ri ght Arm] 112/61 101/60 Pulse Oximetry 95 94 94 Oxygen Delivery Me thod Room Air Room Air Oxygen Flow Rate 10/13/23 12:05 10/13/23 12:10 10/13/23 12:15 Temperature 98.3 F Pulse Rate 88 78 87 Pulse Rate [Right Pulse Oximeter] Respiratory Rate 16 16 18 Blood Pressure 101/44 L 96/52 L 101/56 L Blood Pressure [Ri ght Arm] Pulse Oximetry 88 97 99 Oxygen Delivery Me thod Nasal Cannula Nasal Cannula Nasal Cannula Oxygen Flow Rate 3 3 3 10/13/23 12:20 10/13/23 12:25 10/13/23 12:30 Temperature 97.3 F L Pulse Rate 73 74 69 Pulse Rate [Right Pulse Oximeter] Respiratory Rate 18 18 18 Blood Pressure 101/57 L 106/64 107/55 L Blood Pressure [Ri ght Arm] Pulse Oximetry 99 92 92 Oxygen Delivery Me thod Nasal Cannula Room Air Room Air Oxygen Flow Rate 3 10/13/23 12:35 Temperature 97.5 F L Pulse Rate 71 Pulse Rate [Right Pulse Oximeter] Respiratory Rate 16 Blood Pressure 106/51 L Blood Pressure [Ri ght Arm] Pulse Oximetry 96 Oxygen Delivery Me thod Nasal Cannula Oxygen Flow Rate 2 DS: Data Data Completed and Pending Completed studies during hospitalization: Procedures 10/13/23 lap shahid (Ralph) Labs on day of discharge: Labs from last 24 hours 10/13/23 10/12/23 06:25 20:15 WBC 7.46 RBC 4.07 Hgb 10.4 L Hct 32.4 L MCV 80 MCH 26 MCHC 32 RDW Coeff of Uzma 14.6 Plt Count 258 Neut % (Auto) 59.4 Lymph % (Auto) 29.9 [place] % (Auto) 8.2 Eos % (Auto) 1.7 Baso % (Auto) 0.1 Neut # (Auto) 4.43 Lymph # (Auto) 2.23 [place] # (Auto) 0.60 Eos # (Auto) 0.13 Baso # (Auto) 0.01 Abs Immat Gran (auto) 0.05 Imm/Tot Granulo (auto) 0.7 Sodium 139 Potassium 3.4 L Chloride 111 Carbon Dioxide 23 Anion Gap 5 L BUN 7 Creatinine 0.5 Estimated Creat Clear 218.61 Estimated GFR 128 Glucose 106 Calcium 8.0 L Magnesium 2.2 Total Bilirubin 0.5 AST 18 ALT 12 Alkaline Phosphatase 73 Total Protein 6.1 Albumin 3.3 C.trachomatis Ampl DNA NOT DETECTED N.gonorrhoeae Ampl DNA NOT DETECTED Ordering Physician: Aristides Gay M.D. Date of Service: 10/11/23 Procedure(s): CT abdomen pelvis w con Accession Number(s): [id number] cc: Aristides Gay M.D.; Provider,Not a Local~ For Patients: As a result of the Century Cures Act, medical imaging exams and procedure reports are released immediately into your electronic medical record. You may view this report before your referring provider. If you have questions, please contact your health care provider. INDICATION: Right lower quadrant and left lower quadrant abdominal pain. TECHNIQUE: CT of the abdomen and pelvis acquired with 89 cc Isovue 370 IV contrast. Coronal and sagittal reconstructions. COMPARISON: None. FINDINGS: Liver: Diffuse hepatic steatosis. No focal liver lesions. Hepatic and portal veins are patent. Gallbladder and bile ducts: Unremarkable. No biliary dilation. Spleen: Unremarkable. Pancreas: Unremarkable. Adrenal glands: Unremarkable. Kidneys: Symmetric enhancement. No hydronephrosis or ureteral dilation. No obstructing urinary calculi identified. No bladder wall thickening. Reproductive structures: IUD in the uterus. Unremarkable adnexa. GI tract/Peritoneum: No small bowel dilation. There is edema in the central mesentery inferior to the pancreas extending into the right lower quadrant. Edema surrounds the transverse duodenum and proximal jejunum with mild wall thickening. Associated enlarged mesenteric lymph node to the left of midline measuring 1.5 cm in short axis (series 2, image 59). Moderate amount of stool throughout the colon. Negative appendix. No intraperitoneal free air. Vasculature: Abdominal aorta is normal in caliber. Mesenteric arteries are patent. Lymph nodes: Enlarged mesenteric lymph node as described above. No retroperitoneal lymphadenopathy. Abdominal Wall: Small fat containing umbilical hernia. Bones: Unremarkable. Lower chest: Bibasilar atelectasis or scarring. IMPRESSION: 1. Edema in the central mesentery extending into the right lower quadrant, surrounding the transverse duodenum and proximal jejunum with mild wall thickening. Associated enlarged mesenteric lymph node. Edema appears separate from the pancreas however correlation with serum amylase and lipase is recommended to exclude pancreatitis. Findings could be due to underlying enteritis but overall nonspecific appearance. 2. Diffuse hepatic steatosis. Please note that all CT scans at this facility use dose modulation, iterative reconstruction, and/or weight-based dosing when appropriate to reduce radiation dose to as low as reasonably achievable. Dictated by Arline Coleman MD @ 10/11/2023 7:03:14 PM (Electronically Signed) Ordering Physician: Aristides Gay M.D. Date of Service: 10/11/23 Procedure(s): US gallbladder Accession Number(s): [id number] cc: Aristides Gay M.D.; Provider,Not a Local~ For Patients: As a result of the 21st Century Cures Act, medical imaging exams and procedure reports are released immediately into your electronic medical record. You may view this report before your referring provider. If you have questions, please contact your health care provider. INDICATION: Pancreatitis, abdominal pain TECHNIQUE: Ultrasound abdomen limited. Sonographic images of the gallbladder and biliary tree were obtained using mota-scale and color Doppler images. COMPARISON: None FINDINGS: Liver: The liver parenchyma is normal in echotexture. Gallbladder: An echogenic gallstone measuring 1 cm is seen near the gallbladder neck. The gallbladder wall is normal in appearance. No pericholecystic fluid is present. Common bile duct: 3 mm. No intrahepatic biliary ductal dilatation seen. Vascular: Proximal abdominal aorta and IVC are not demonstrated. IMPRESSION: 1. An echogenic gallstone measuring 1 cm is seen near the gallbladder neck. Dictated by Franc Rose MD @ 10/11/2023 9:29:08 PM Dictated by: Franc Rose MD @ 10/11/2023 21:29:14 (Electronically Signed) Ordering Physician: Sindy Lees M.D. Date of Service: 10/12/23 Procedure(s): MR abdomen wo con Accession Number(s): [id number] cc: Sindy Lees M.D.; Provider,Not a Local~ For Patients: As a result of the Cures Act, medical imaging exams and procedure reports are released immediately into your electronic medical record. You may view this report before your referring provider. If you have questions, please contact your health care provider. INDICATION: Pancreatitis TECHNIQUE: Noncontrast abdominal MRI with T1 and T2 weighted imaging as well as heavily T2 weighted MRCP. FINDINGS: Liver: Mild fatty infiltration. A tiny cyst is present in the lateral left hepatic segment II. Series 7, image 11. Pancreas: Peripancreatic phlegmon with edema on the T2 weighted images. No ductal dilatation. No pancreatic mass. No pancreatic divisum. Biliary tree: Minimal low-level sludge and a few small stones near the neck of the gallbladder. No definite dilatation of the intra or extrahepatic ducts. No intraductal stone identified. Miscellaneous: Atelectasis in the lung bases. No ascites. No adenopathy or hydronephrosis. Adrenal glands and pancreas are unremarkable. COMPARISON: CT scan abdomen October 11, 2023. IMPRESSION: 1. Peripancreatic phlegmon compatible with pancreatitis. No signs of a pseudocyst. 2. No biliary dilatation. No definite filling defect identified in the extrahepatic bile duct. Small gallstones are present. 3. Bilateral basilar atelectasis. Dictated by Carlo Osorio MD @ 10/12/2023 2:04:25 PM (Electronically Signed) Ordering Physician: Sindy Lees M.D. Date of Service: 10/12/23 Procedure(s): US pelvic TA and TV Accession Number(s): [id number] cc: Sindy Lees M.D.; Provider,Not a Local~ For Patients: As a result of the Century Cures Act, medical imaging exams and procedure reports are released immediately into your electronic medical record. You may view this report before your referring provider. If you have questions, please contact your health care provider. INDICATION: Pelvic pain, check IUD. COMPARISON: None. TECHNIQUE: 2D mota scale and color Doppler images were acquired of the pelvis using a transabdominal and transvaginal approach. FINDINGS: Sonographic images demonstrate a normal size and smooth outer contour of the uterus. The uterus is anteverted in position. The uterus measures 7.6 cm in length by 3.0 cm in AP diameter by 5.9 cm in transverse dimension. The myometrium has uniform echotexture. The endometrial lining measures 3 mm in composite thickness. IUD appears appropriately positioned. The right ovary measures 3.6 x 2.6 x 3.2 cm and the left ovary measures 3.5 x 2.4 x 2.6 cm. The ovaries demonstrate normal arterial and venous blood flow on color Doppler analysis. No free fluid in the pelvic cul-de-sac. IMPRESSION: 1. IUD appears appropriately positioned. 2. Exam otherwise unremarkable. No evidence of ovarian torsion. Dictated by Arline Coleman MD @ 10/12/2023 6:13:06 PM (Electronically Signed) Discharge Plan Discharge Disposition: Home, Self-Care Date of Admission: 10/13/23 08:58 Attending Provider on Discharge: Jessa Rosas Primary Care Provider: Provider,Not a Local Condition: Improved Anticipated Discharge Date/Time: 10/13/23 15:00 Discharge Medications: New hydrocodone-acetaminophen 5-325 mg tablet 1 - 2 tab PO Q6H PRN (Reason: Pain) Qty: 20 0RF Rx Instructions: 1 - 2 tab orally as needed Discharge Orders: Discharge Order (Routine); Ordered 10/13/23 Ordered By: Jessa Rosas Patient Education: Hydrocodone/Acetaminophen (By mouth), General Anesthesia (DC), Laparoscopic Cholecystectomy (DC), Post-Operative Instructions: Laparoscopic Cholecystectomy Additional Instructions: Wound care: Your sutures are under the skin and will dissolve over time. Leave steri strips (white bandages) over incisions until they fall off (or remove after 7 days). OK to shower tomorrow but avoid bathing, soaking or swimming for 2 weeks. Pat the incisions dry. No need to wash or scrub the area. Apply ice to the area as needed for swelling. It is also OK to use a heating pad if this provides more comfort to you. Pain control: You were prescribed a pain medication. This medication contains acetaminophen (Tylenol). If you are taking your prescribed pain pills 4 times daily, do not take additional acetaminophen. This medication can be taken well breast-feeding, however monitor or your baby for signs of excessive drowsiness. If you notice this you should stop breast feeding, pump and discard your milk until you are no longer taking the prescription pain medication As your pain improves, you can try taking acetaminophen instead of the prescribed pain pill. It is ok to take Ibuprofen or Naproxen (per directions on packaging). This medication helps with inflammation and swelling. Take an qwho-xsl-fjuebul stool softener while you are taking prescribed pain medications to help alleviate constipation. I recommend Senna and/or Colace. Take as directed on package. If you have not had a bowel movement in 3 days, try taking Miralax as directed on the package. All of these are available over the counter. Follow-up Follow up with Dr. Rosas in 2-3 weeks Please call if you are experiencing severe pain, nausea, vomiting, difficulty urinating, fever or have not had bowel movement in 4 days after surgery. Activity Level: No strenuous activity Activity Detail: No lifting more than 20 lb for 2 weeks. Discharge Diet: Regular Follow Up Appointments: Jessa Rosas MD [Staff Physician] - 10/31/23 9:00 am ([facility] follow-up) Provider,Not a Local [Primary Care Provider] - Forms: Work/School Release, [facility] Info Instructions
--- NOTE | 2023-10-13 18:19 | PM.EN ---
Chart Event Note Time Seen by Provider: 18:00 Date Seen: 10/13/23 Chart Event Note: Patient is being discharged to home. Was prescribed hydrocodone acetaminophen for pain. Her pharmacy is closed. I prescribed hydrocodone acetaminophen 6 tablets from [facility].
[2023-10-13] MEDS: HYDROCODONE-ACETAMIN 5-325 MG 1 TAB PO (21:31)
--- NOTE | 2023-10-13 21:50 | PC.NURSE ---
Pt. VSS. A & O. Advanced to a regular diet and tolerated well. Voided for the first time at 1540 and had approx. 300cc output. Voided x2 more times after without difficulty. Amb. Independently. IV removed and intact. Discharged to home at 2150 via wheelchair, accompanied by sister and niece. RN provided discharge education. Discharge packet signed by RN and patient.
== END 2023-10-13 21:50 | disposition home or self-care (01) | DRG 418 ==
LOC: ED 17:14 → MEDSURG 22:44
PROVIDERS: Family Medicine; Surgery; Admitting Provider Family Medicine; Emergency Provider Emergency Medicine; Visit Provider Family Medicine
PROC: 0FT44ZZ Resection of Gallbladder, Percutaneous Endoscopic Approach (ICD-10-PCS; CPT 47562; principal; 2023-10-13 10:15)
DX: K85.10 Biliary acute pancreatitis without necrosis or infection (principal); Z68.41 Body mass index [BMI] 40.0-44.9, adult; K29.80 Duodenitis without bleeding; E66.01 Morbid (severe) obesity due to excess calories; E87.6 Hypokalemia; K76.0 Fatty (change of) liver, not elsewhere classified
CPT/HCPCS: 00790; 36415; 74177; 74181; 76705; 76830; 76856; 80053; 81001; 81025; 83540; 83550; 83690; 83735; 85025; 85027; 86140; 87086; 87338; 87491; 87591; 88304; 93976; 99284; 99285; A9270; G0378; J0131; J0665; J0690; J1100; J1170; J1630; J1885; J2405; J2470; J2704; J2710; J3010; J3480; J7030; J7120; Q9967